=== PATIENT | female | born 1950 | race Caucasian/White ===

== ENCOUNTER 2020-11-26 11:06 | Outpatient (REF) | payer MEDICARE, BC, SELFPAY ==
[2020-11-26 13:48] LABS: Hematocrit 43.7 % (37-47); Hemoglobin 14.2 g/dl (12.0-16.0); Mean Corpuscular HGB Conc 32.5 g/dl (31.0-35.0); Mean Corpuscular Hemoglobin 30.5 pg (27.0-33.0); Mean Platelet Volume 11.8 fL (9.4-12.3); Platelet Count 256 X10*3/uL (160-400); Red Blood Count 4.65 X10*6/uL (4.20-5.50); Red Cell Distribution Width 12.4 % (11.0-16.0); White Blood Count 8.2 X10*3/uL (4.8-10.8)
[2020-11-26 14:02] LABS: Glucose Urine UA NEG (NEG); Leukocyte Esterase Urine NEG (NEG); Nitrite Urine NEG (NEG); PH 5.5 (5.0-8.0); Specific Gravity - Urine 1.025 (1.005-1.025); Urine Blood NEG (NEG); Urine Ketones NEG (NEG); Urine Protein NEG (NEG-TRACE)
[2020-11-26 14:05] LABS: Appearance Urine HAZY; Color Urine YELLOW
[2020-11-26 14:35] LABS: Mucus Urine 1+ /LPF; RBC Urine 0 /HPF (0); Squamous Epithelial Cell Urine 1+ /LPF; WBC Urine 0 /HPF (0-4)
[2020-11-26 18:09] LABS: Alanine Aminotransferase 85 U/L (0-31); Albumin Level 4.8 g/dL (3.5-5.0); Alkaline Phosphatase 96 U/L (39-117); Anion Gap 16 (12-20); Aspartate Amino Transferase 57 U/L (5-31); Bilirubin Total 0.5 mg/dL (0.0-1.0); Blood Urea Nitrogen 16 mg/dL (9-16); Calcium 9.7 mg/dL (8.4-10.2); Carbon Dioxide 27 mmol/L (22-29); Chloride 102 mmol/L (96-108); Cholesterol 181 mg/dL; Estimated Glomerular Filt Rate > 60; Glucose Fasting 102 mg/dL (60-99); HDL Cholesterol 49 mg/dL; LDL Cholesterol Calculated 101 mg/dl; Potassium 4.7 mmol/L (3.3-5.1); Sodium 140 mmol/L (135-145); Total Protein 7.5 g/dL (6.5-8.0); Triglycerides 159 mg/dL
[2020-11-26 18:20] LABS: TSH reflex Free T4 2.49 uIU/mL (0.32-4.0)
== END 2020-11-26 11:07 | disposition home or self-care (01) ==
LOC: HO.HMGCLDS 11:06
PROVIDERS: PCP Internal Medicine; Visit Provider Internal Medicine
DX: E78.5 Hyperlipidemia, unspecified (principal); I10 Essential (primary) hypertension; M17.0 Bilateral primary osteoarthritis of knee; M25.562 Pain in left knee
CPT/HCPCS: 36415; 80053; 80061; 81001; 82306; 84443; 85027

== ENCOUNTER 2020-12-26 09:00 | Outpatient (RCR) | payer MEDICARE, BC, SELFPAY ==
--- NOTE | 2020-10-30 13:19 | MHC.PT.EP ---
[facility] [place] Office [place] Office [place] Office [address] [facility]asha[facility] [address] [phone] F: [phone] F: [phone] F: [phone] F: [phone] Physical Therapy Plan of Care Date of Evaluation: 10/30/20 Date of Surgery: n/a (history of R knee surgery) Diagnosis: L knee pain Assessment: Patient is a 70 year old R handed female who presents with s/s consistent with L knee pain. 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 Patient past medical history includes chronic knee pain, OA, and cervical surgery, COPD. Current impairments include pain, ROM, strength, balance, safety, independence, activity tolerance and functional mobility. Functional limitations include decreased ability to walk, stand, transfer, negotiate stairs, and perform weight bearing activities.. Patient is motivated with good rehab potential. Skilled PT will address impairments and functional limitations in order to achieve goals. Frequency and Duration: The patient will be seen 2x/week for 5 weeks Short Term Goals: I with HEP - 2 weeks AROM 0-130 on L knee - 3 weeks able to walk 10 minutes without increased pain, symmetrical gait - 3 weeks Fdc Goals: max pain 2/10 with ADLs - 5 weeks LEFS 44/80 - 5 weeks LE strength 4/5 grossly - 5 weeks Treatment Plan: Modalities to reduce pain, spasms and effusion. Manual therapy to restore motion and function. Therapeutic exercise to improve strength and flexibility. Neuromuscular re-education for posture and balance. Therapeutic activities to return to functional activities of daily living. Electronically signed by: Steve Saul, PT Please sign and return to therapist. Thank you for your referral.
--- NOTE | 2021-01-09 10:39 | MHC.PT.DC ---
[facility] [place] Office [place] Office [place] Office [address] R[facility] 140 [facility] [phone] F: [phone] F: [phone] F: [phone] F: [phone] Physical Therapy Discharge Report Diagnosis: L knee pain Date of Surgery: n/a (history of R knee surgery) Date of Evaluation: 10/30/20 Date of Discharge: 01/09/21 Treatments to Date: 11 Cancellations to Date: 0 No Shows to Date: 0 Discharge Status: Achieved Goals Improved Function Independent with HEP Discharge Summary: Pt progressing well. ROM and strength are satisfactory as are functional gains. pt to continue with HEP and return in 2 weeks if needed. Electronically signed by: Steve Saul, PT Please sign and return to therapist. Thank you for your referral.
== END 2021-01-13 13:45 | disposition home or self-care (01) ==
LOC: HO.PTCHIC 09:00
PROVIDERS: PCP Internal Medicine; Visit Provider Internal Medicine
DX: M25.562 Pain in left knee (principal)
CPT/HCPCS: 97110; 97112; 97140; 97162

== ENCOUNTER 2021-03-26 13:11 | Outpatient (REF) | payer MEDICARE, BC, SELFPAY ==
--- NOTE | ~2021-03-26 | US_ITS ---
EXAMINATION: NONINVASIVE ASSESSMENT OF THE ARTERIES OF BOTH LOWER EXTREMITIES INCLUDING ANKLE BRACHIAL INDICES CLINICAL INFORMATION: Peripheral vascular disease, unspecified COMPARISON: None TECHNIQUE: Ankle pulse ankle pressure measurements and ankle brachial indices were obtained of the lower extremity arterial system bilaterally. The study was performed only at rest. FINDINGS: RIGHT LEG 1. Right Ankle-Brachial Index: 0.83 (higher of the DP/PT) >0.97-1.25 = normal - no significant arterial disease 0.75-0.96 = mild peripheral arterial disease 0.5-0.74 = moderate peripheral arterial disease <0.50 = severe peripheral arterial disease <0.30 = critical arterial disease 2. Segmental Pressures (mmHg): Ankle: PT 136, DP 120 Brachial: 163 LEFT LE. Left Ankle-Brachial Index: 1 (higher of the DP/PT) >0.97-1.25 = normal - no significant arterial disease 0.75-0.96 = mild peripheral arterial disease 0.5-0.74 = moderate peripheral arterial disease <0.50 = severe peripheral arterial disease <0.30 = critical arterial disease 2. Segmental Pressures: Ankle: PT 163, DP 153 Brachial: 149 US/US ABIMAEL complete IMPRESSION: Right ankle-brachial index 0.83 suggesting mild peripheral arterial disease. Left ankle-brachial index within normal limits.
== END 2021-03-26 13:12 | disposition home or self-care (01) ==
LOC: HO.US 13:11
PROVIDERS: PCP Internal Medicine; Visit Provider Internal Medicine
DX: I73.9 Peripheral vascular disease, unspecified (principal)
CPT/HCPCS: 93923

== ENCOUNTER 2021-07-09 09:42 | Outpatient (REF) | payer MEDICARE, BC, SELFPAY ==
[2021-07-09 11:57] LABS: Hematocrit 44.5 % (37.0-47.0); Hemoglobin 14.9 g/dl (12.0-16.0); Mean Corpuscular HGB Conc 33.5 g/dl (31.0-35.0); Mean Corpuscular Hemoglobin 30.4 pg (27.0-33.0); Mean Corpuscular Volume 90.8 fL (80.0-98.0); Mean Platelet Volume 11.8 fL (9.4-12.3); Platelet Count 234 X10*3/uL (160-400); Red Cell Distribution Width 12.5 % (11.0-16.0); White Blood Count 6.7 X10*3/uL (4.8-10.8)
[2021-07-09 12:37] LABS: Alanine Aminotransferase 60 U/L (0-31); Albumin Level 4.8 g/dL (3.5-5.0); Alkaline Phosphatase 112 U/L (39-117); Anion Gap 17 (12-20); Aspartate Amino Transferase 32 U/L (5-31); Bilirubin Total 0.7 mg/dL (0.0-1.0); Blood Urea Nitrogen 14 mg/dL (9-16); Calcium 10.1 mg/dL (8.4-10.2); Carbon Dioxide 25 mmol/L (22-29); Chloride 103 mmol/L (96-108); Cholesterol 151 mg/dL; Estimated Glomerular Filt Rate > 60; Glucose Fasting 104 mg/dL (60-99); HDL Cholesterol 45 mg/dL; LDL Cholesterol Calculated 87 mg/dl; Potassium 4.6 mmol/L (3.3-5.1); Sodium 140 mmol/L (135-145); Total Protein 7.6 g/dL (6.5-8.0); Triglycerides 99 mg/dL
[2021-07-09 12:42] LABS: TSH reflex Free T4 1.85 uIU/mL (0.32-4.0)
== END 2021-07-09 09:43 | disposition home or self-care (01) ==
LOC: HO.HMGCLDS 09:42
PROVIDERS: PCP Internal Medicine; Visit Provider Internal Medicine
DX: Z00.00 Encounter for general adult medical examination without abnormal findings (principal); E78.5 Hyperlipidemia, unspecified
CPT/HCPCS: 36415; 80053; 80061; 82550; 84443; 85027

== ENCOUNTER 2022-06-03 10:08 | Outpatient (REF) | payer MEDICARE, BC, SELFPAY ==
[2022-06-03 15:02] LABS: MANUAL DIFF FLAG NO
[2022-06-03 15:09] LABS: Basophils Absolute Auto 0.1 X10*3/uL (0.0-0.2); Basophils Percent Auto 0.8 % (0-2); Eosinophils Absolute Auto 0.2 X10*3/uL (0.0-0.4); Eosinophils Percent Auto 2.9 % (0-4); Hematocrit 43.9 % (37.0-47.0); Hemoglobin 14.6 g/dl (12.0-16.0); Imm Gran Abs Auto 0.02 X10*3/uL (0.00-0.03); Imm Gran Pct Auto 0.3 % (0.0-0.4); Lymphocytes Absolute Auto 2.5 X10*3/uL (1.2-4.9); Lymphocytes Percent Auto 32.3 % (20-40); Mean Corpuscular HGB Conc 33.3 g/dl (31.0-35.0); Mean Corpuscular Hemoglobin 30.2 pg (27.0-33.0); Mean Corpuscular Volume 90.9 fL (80.0-98.0); Mean Platelet Volume 11.6 fL (9.4-12.3); Monocytes Absolute Auto 0.6 X10*3/uL (0.1-1.2); Monocytes Percent Auto 8.3 % (2-11); Neutrophils Absolute Auto 4.3 x10*3/uL (2.0-8.3); Neutrophils Percent Auto 55.4 % (45-73); Platelet Count 232 X10*3/uL (160-400); Red Blood Count 4.83 X10*6/uL (4.20-5.50); Red Cell Distribution Width 12.4 % (11.0-16.0); White Blood Count 7.7 X10*3/uL (4.8-10.8)
[2022-06-03 15:21] LABS: Alanine Aminotransferase 40 U/L (0-31); Alkaline Phosphatase 113 U/L (39-117); Anion Gap 18 (12-20); Aspartate Amino Transferase 26 U/L (5-31); Bilirubin Total 0.4 mg/dL (0.0-1.0); Blood Urea Nitrogen 14 mg/dL (9-16); Calcium 10.1 mg/dL (8.4-10.2); Carbon Dioxide 24 mmol/L (22-29); Chloride 103 mmol/L (96-108); Cholesterol 178 mg/dL; Estimated Glomerular Filt Rate > 60; Glucose Fasting 110 mg/dL (60-99); HDL Cholesterol 46 mg/dL; LDL Cholesterol Calculated 92 mg/dl; Potassium 4.9 mmol/L (3.3-5.1); Sodium 140 mmol/L (135-145); Total Protein 7.9 g/dL (6.5-8.0); Triglycerides 201 mg/dL
[2022-06-03 15:44] LABS: TSH reflex Free T4 2.38 uIU/mL (0.32-4.0)
[2022-06-03 15:54] LABS: Folate 9.4 ng/mL (> or = 4.0); Vitamin B12 292 pg/mL (200-900)
== END 2022-06-03 10:09 | disposition home or self-care (01) ==
LOC: HO.HMGCLDS 10:08
PROVIDERS: PCP Internal Medicine; Visit Provider Internal Medicine
DX: M48.00 Spinal stenosis, site unspecified (principal); E78.5 Hyperlipidemia, unspecified; I10 Essential (primary) hypertension
CPT/HCPCS: 36415; 80053; 80061; 82306; 82607; 82746; 84443; 85025

== ENCOUNTER 2022-08-02 12:53 | Outpatient (REF) | payer MEDICARE, BC, SELFPAY ==
--- NOTE | ~2022-08-02 | XR_ITS ---
EXAMINATION: XR KNEE AP STANDING CLINICAL INFORMATION: Pain right knee. COMPARISON: None TECHNIQUE: AP bilateral standing view of the knees was obtained. Right knee 2 views. FINDINGS: AP Bilateral Knee: There is severe loss of medial compartment joint space right knee and moderate loss of medial and lateral compartment joint space left knee. There is periarticular spurring in the lateral compartment with chondrocalcinosis medial compartment left knee. Lateral Right Knee: There is moderate loss of patellofemoral compartment joint space with mild suprapatellar joint effusion. There is enthesophytes along the anterior tibial plateau and anterior medial femoral condyle. No loose body is seen. Lateral Left Knee: There is minimal loss of patellofemoral component joint space without joint effusion. There is inferior patellar spurring. XR/XR knee standing BI IMPRESSION: 1. Severe degenerative arthritic changes medial compartment right knee with moderate degenerative changes medial and lateral compartment left knee. 2. There is moderate loss of patellofemoral compartment joint space right knee with periarticular spurring in the medial and lateral compartments. There is mild suprapatellar joint effusion. 3. No joint effusion left knee.
[2022-08-02 15:01] LABS: Vitamin D 25-OH Total 71.7 ng/mL (>30)
== END 2022-08-02 12:54 | disposition home or self-care (01) ==
LOC: HO.HMGCLDS 12:53
PROVIDERS: PCP Internal Medicine; Visit Provider Internal Medicine
DX: M25.562 Pain in left knee (principal); M25.561 Pain in right knee; E55.9 Vitamin D deficiency, unspecified; E78.5 Hyperlipidemia, unspecified
CPT/HCPCS: 36415; 73565; 82306

== ENCOUNTER 2022-09-16 05:59 | Outpatient (REF) | payer MEDICARE, BC, SELFPAY ==
--- NOTE | ~2022-09-16 | XR_ITS ---
EXAMINATION: XT BILATERAL KNEES CLINICAL INFORMATION: Pain in bilateral knees. COMPARISON: None. TECHNIQUE: [place] views of both knees were obtained. FINDINGS: There is mild loss of medial patellofemoral compartment joint space in the left knee, and lateral patellofemoral compartment joint space in the right knee with mild periarticular spurring. No bony erosive changes seen. The soft tissues are normal. XR/XR knee LT 1V IMPRESSION: Mild degenerative changes involving patellofemoral compartments of both knees as described above. There is mild periarticular spurring as well. No bony erosive changes or loose body seen.
--- NOTE | ~2022-09-16 | XR_ITS ---
EXAMINATION: XT BILATERAL KNEES CLINICAL INFORMATION: Pain in bilateral knees. COMPARISON: None. TECHNIQUE: [place] views of both knees were obtained. FINDINGS: There is mild loss of medial patellofemoral compartment joint space in the left knee, and lateral patellofemoral compartment joint space in the right knee with mild periarticular spurring. No bony erosive changes seen. The soft tissues are normal. XR/XR knee RT 1V IMPRESSION: Mild degenerative changes involving patellofemoral compartments of both knees as described above. There is mild periarticular spurring as well. No bony erosive changes or loose body seen.
== END 2022-09-16 06:00 | disposition home or self-care (01) ==
LOC: HO.HOSX 05:59
PROVIDERS: Visit Provider Physician Assistant
DX: M17.0 Bilateral primary osteoarthritis of knee (principal)
CPT/HCPCS: 20610; 73560; 99202; J1040

== ENCOUNTER 2022-11-23 10:00 | Outpatient (RCR) | payer MEDICARE, BC, SELFPAY ==
--- NOTE | 2022-11-04 14:32 | MHC.PT.EP ---
[facility] [place] Office [place] Office [place] Office [address] [facility] [address] [phone] F: [phone] F: [phone] F: [phone] F: [phone] Physical Therapy Plan of Care Date of Evaluation: Date of Surgery: N/A Diagnosis: bilateral primary osteoarthritis of knee (RC) Assessment: pt is a 72 y/o female presenting to physical therapy w/ referring diagnosis of bilateral primary osteoarthritis of knee. She presents w/ signs and symptoms consistent w/ RA (+ pt's son) vs. fibromyalgia (present on mother's side of family). She has not had formal work-up for either diagnoses. She presents w/ hopes of receiving B TKAs in the future. pt may benefit from undergoing TKA for L first as R side is her stronger LE as of right now. Impairments include pain, decreased range of motion, decreased strength, impaired functional mobility, impaired postural awareness, and altered ambulation mechanics. pt is a fair candidate for skilled PT due to age, potential remediation of impairments, typical disease/condition progression and prognosis, comorbidities, and motivation. pt would benefit from skilled PT intervention to provide a tailored strengthening and stretching exercise program, functional training, gait training, postural re-training, neuromuscular re-education, modalities as needed for pain, equipment safety demonstration. Frequency and Duration: The patient will be seen 2x/wk for 5 wks Short Term Goals: pt will be I w/ HEP to promote self-management of condition. 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 pt will demo safe ambulation mechanics w/ SPC and walker for household ambulation to reduce fall risk. Residential Goals: pt will report a statistically significant improvement in self-reported outcome measure, LEFI, to promote return to PLOF. pt will report <2/10 B knee pain w/ ambulation 6 x 30' to facilitate improved household ambulation. pt will ascend/descend 10 stairs w/ step to pattern and railing to promote improved access to laundry. Treatment Plan: Modalities to reduce pain, spasms and effusion. Manual therapy to restore motion and function. Therapeutic exercise to improve strength and flexibility. Neuromuscular re-education for posture and balance. Therapeutic activities to return to functional activities of daily living. Electronically signed by: Barbara Loera PT, DPT Please sign and return to therapist. Thank you for your referral.
--- NOTE | 2022-12-16 08:17 | MHC.PT.DC ---
[facility] [place] Office [place] Office [place] Office [address] [facility] [address] [phone] F: [phone] F: [phone] F: [phone] F: [phone] Physical Therapy Discharge Report Diagnosis: bilateral primary osteoarthritis of knee (RC) Date of Surgery: N/A Date of Evaluation: 11/04/22 Date of Discharge: 12/16/22 Treatments to Date: 4 Cancellations to Date: 4 No Shows to Date: 1 Discharge Status: Improved Function Visit Non-compliance Discharge Summary: The patient has not been seen in this office for three weeks. She has not called to schedule any additional appointments. Per the last treatment note on 11/23/22: pt admits to feeling better w/ exercises so far. pt stated she had her L knee lock up last night when she was trying to get off the couch. She reported a painful unlocking sensation w/ some force. pt stated she was able to stand up, weight bear, and ambulate on it afterwards. pt progressed w/ stepper today to 8 min. Progressed to more quad and hamstring strengthening today. All ex's done to leslee. She is discharged from this physical therapy plan of care. Electronically signed by: Barbara Loera PT, DPT Please sign and return to therapist. Thank you for your referral.
== END 2022-12-16 08:18 | disposition home or self-care (01) ==
LOC: HO.PT 10:00
PROVIDERS: PCP Internal Medicine; Visit Provider Physician Assistant
DX: M17.0 Bilateral primary osteoarthritis of knee (principal)
CPT/HCPCS: 97110; 97162

== ENCOUNTER 2023-03-25 10:57 | Outpatient (AMB) | payer MEDICARE, BC, SELFPAY ==
[2023-03-25 11:05] VITALS: BP 120/82; PULSE 64; O2SAT 95; BMI 27.0
--- NOTE | 2023-03-25 11:05 | A.OFFPC_ITS ---
Vital Signs 03/25/23 11:05 Height 5 ft 6 in Weight 167 lb 4 oz BMI 27.0 BP 120/82 Blood Pressure Location Lt brachial Position Sitting Pulse 64 Pulse Source Pulse Oximeter Pulse Oximetry (%) 95 Oxygen Delivery Method Room Air Intake Visit Reasons: left hip pain Intake Note: pt is here for left side Hip pain Allergies Penicillins Allergy (Unknown, Verified 03/25/23 11:08) unknown Tobacco use date assessed: 03/25/23 Fall risk assessment: 1 Fall in past year Last assessed Fall Risk: 03/25/23 Dental Screening Dental Screen Date: 03/25/23 Did you have a dental visit in the last 12 months?: Yes Did you have a dental problem in the last 6 months where you did not have access to dental care?: No Was dental information given to patient?: Patient has dentist HPI left hip pain HPI Details Pt c/o L hip pain for 1 year, getting worse when walk and twisting body, not at rest. Patient denies any injury. She completed physical therapy for bilateral knee pain and feels better [facility] Medical History Annual physical exam Claudication COPD (chronic obstructive pulmonary disease) Elevated LFTs Ex-smoker for more than 1 year HTN (hypertension) Hyperlipidemia Knee pain, left Mammogram normal Osteoarthritis of knees, bilateral Surgical History H/O knee surgery Family History Mother Diabetes Fibromyalgia Father Abnormal cardiovascular function Brother Substance use disorder Social History Housing: House Alcohol intake: current Alcohol intake frequency: a few times a week Patient Tobacco Use Status: Former Tobacco user Quit Date: 1,5 year ago e-Cigarette/Vaping Use: Former Use Current occupational status: retired Cognitive needs: No Hearing needs: No Vision needs: Yes Questionnaire Thrive Questionnaire Date Thrive assessed: 11/25/22 AUDIT C Alcohol Use Questionnaire (AUDIT-C) 1. How often do you have a drink containing alcohol?: 2-4 times a month 2. How many drinks containing alcohol do you have on a typical day when you are drinking?: 1 or 2 3. How often do you have six or more drinks on one occasion?: Less than monthly Total Score: 3 KENA-7 AMB Questionnaire KENA-7 Date KENA - 7 assessed: 11/25/22 Feeling nervous, anxious, or on edge: 2 = More than half the days Not being able to stop or control worryin = More than half the days Worrying too much about different things: 2 = More than half the days Trouble relaxin = More than half the days Being so restless that it is hard to sit still: 0 = Not at all Becoming easily annoyed or irritable: 1 = Several days Feeling afraid as if something awful might happen: 1 = Several days Total KENA-7 score (0-4 normal; 5-9 mild; 10-14 moderate; 15-21 severe): 10 Source: Developed by Drs. Simon Abel, Thelma Gould, Rajat Todd and colleagues, with an educational juliano from [employer]. Review of Systems Const All systems reviewed & are unremarkable except as noted in HPI and below Reports no additional complaints Eyes Reports no additional complaints ENT Reports no additional complaints Card Reports no additional complaints Resp Reports no additional complaints GI Reports no additional complaints Reports no additional complaints Physical exam (Primary Care) Vital Signs: Last Vital Signs Pulse 64 03/25/23 11:05 BP 120/82 03/25/23 11:05 Pulse Ox 95 03/25/23 11:05 Oxygen Delivery Method Room Air 03/25/23 11:05 BMI result Body Mass Index 27.0 Tobacco/Smoking Status: Tobacco use Status Tobacco use date assessed 03/25/23 03/25/23 11:12 Patient Tobacco Use Status Former Tobacco user 03/25/23 11:05 e-Cigarette/Vaping Use Former Use 03/25/23 11:05 Thrive Assessment: Date of Thrive Assessment Date Thrive assessed 11/25/22 03/25/23 11:05 Const General: no acute distress HENMT Face and sinus: Yes normal facial exam Resp Effort & Inspection: normal respiratory effort Auscultation: clear to auscultation bilaterally Cardio Rhythm: regular rhythm Heart sounds: S1 normal heart sound present and S2 normal heart sound present Extrem Other: Significantly decreased range of motion both hips left more than right General: Yes no clubbing, cyanosis or edema Assessment and Plan Assessment & Plan (1) Hip pain, bilateral: Code(s): M25.551 - Pain in right hip; M25.552 - Pain in left hip Plan: Obtain x-ray (2) Left hip pain: Code(s): M25.552 - Pain in left hip Plan: Check x-ray referred to physical therapy and orthopedic surgeon Orders: Orders XR hips IVON min 3V Today M25.551 - Pain in right hip, M25.552 - Pain in left hip PT Evaluation and Treatment Today M25.552 - Pain in left hip Referrals Orthopedics Referral M25.552 - Pain in left hip Coding Level of Care Code Est Pt Level 3 (30150) Diagnoses Hip pain, bilateral M25.551; M25.552 Left hip pain M25.552
== END 2023-03-25 11:51 | disposition home or self-care (01) ==
PROVIDERS: PCP Internal Medicine; Visit Provider Internal Medicine
DX: M25.551 Pain in right hip (principal); M25.552 Pain in left hip
CPT/HCPCS: 99213

== ENCOUNTER 2023-03-25 11:55 | Outpatient (REF) | payer MEDICARE, BC, SELFPAY ==
--- NOTE | ~2023-03-25 | XR_ITS ---
EXAMINATION: XR BILATERAL HIPS WITH AP PELVIS CLINICAL INFORMATION: Pain COMPARISON: 09/16/2022 TECHNIQUE: Total of 4 views AP view of the pelvis and single views of each hip were obtained. FINDINGS: ORIF changes lower lumbosacral spine partially imaged. Advanced degeneration of both hip joints left greater than right with loss of joint space in axial manner. Relative paucity of hypertrophic changes but there are subchondral cysts. Appearance favors sequelae of an inflammatory arthritis including rheumatoid arthritis. Minor trochanteric calcifications likely on the right. No focal bony lesion. XR/XR hips IVON min 3V IMPRESSION: Advanced degeneration of both hip joints left greater than right. Appearance favors sequelae of an inflammatory arthritis including rheumatoid arthritis.
== END 2023-03-25 11:56 | disposition home or self-care (01) ==
LOC: HO.HMGCX 11:55
PROVIDERS: PCP Internal Medicine; Visit Provider Internal Medicine
DX: M25.551 Pain in right hip (principal); M25.552 Pain in left hip
CPT/HCPCS: 73522

== ENCOUNTER 2023-03-30 14:32 | Outpatient (AMB) | payer MEDICARE, BC, SELFPAY ==
[2023-03-30 14:44] VITALS: BMI 26.2
--- NOTE | 2023-03-30 14:44 | MHC.OFFVIS ---
Intake Vital Signs 03/30/23 14:44 Height 5 ft 7 in Weight 167 lb BMI 26.2 Intake Visit Reasons: New Prob-Left Hip Pain Intake Note: Jane is a 72 year old female who presents today for a evaluation for her left hip pain. Patient reports ongoing pain for many years. She states her pain is more near the glutes and moves down to her thigh. Pain is worse when sleeping on the left side, and standing for too long. Patient reports having PT appointment at the end of March. The patient describes her left hip pain as sharp and severe in nature, 05/31. The patient also has intermittent pain in her right hip. She states that her right hip pain is tolerable to her at this point. The patient has difficulty walking even short distances because of her left hip pain. She has tried Tylenol and anti-inflammatory medicines which gave her minimal relief. At this point the patient's left hip pain is interfering with her activities of daily living and her ability to sleep well through the night. Allergies Penicillins Allergy (Unknown, Verified 03/30/23 14:50) unknown Medication List - Last Reconciled 03/31/23 by Gregory Martinez MD atorvastatin 40 mg PO DAILY cholecalciferol (vitamin D3) 25 mcg PO DAILY metoprolol succinate ER 100 mg PO DAILY omega-3 fatty acids (Fish Oil Concentrate) 1,000 mg PO DAILY [facility] Medical History Annual physical exam Claudication COPD (chronic obstructive pulmonary disease) Elevated LFTs Ex-smoker for more than 1 year HTN (hypertension) Hyperlipidemia Knee pain, left Mammogram normal Osteoarthritis of knees, bilateral Surgical History H/O knee surgery Family History Mother Diabetes Fibromyalgia Father Abnormal cardiovascular function Brother Substance use disorder Social History Housing: House Alcohol intake: current Alcohol intake frequency: a few times a week Patient Tobacco Use Status: Former Tobacco user Quit Date: 1,5 year ago e-Cigarette/Vaping Use: Former Use Current occupational status: retired Cognitive needs: No Hearing needs: No Vision needs: Yes Physical Exam Vital Signs: BMI result Body Mass Index 26.2 Const Other: Well-nourished well-developed very friendly female awake alert and oriented x3 in no acute distress Extrem Other: Bilateral lower extremity examination shows good capillary refill, no skin lesions noted, normal sensation light touch Left hip examination shows decreased range of motion when compared to her right hip, pain with range of motion, no tenderness over her bursa Results Reviewed Results Reviewed: X-rays of the patient's left hip show severe joint space narrowing with grade 4 [id number] arthritis, subchondral sclerosis, osteophyte formation, no acute bony abnormalities Assessment & Plan Assessment & Plan (1) Arthritis of left hip: Code(s): M16.12 - Unilateral primary osteoarthritis, left hip Plan Ms. Shrestha presents with progressively worsening bilateral hip pains, left greater than right, due to severe degenerative joint disease. I had a lengthy discussion with her regarding the treatment options. At this point the patient has failed continued non operative treatments. The risks and benefits of left total hip replacement surgery were discussed at length with the patient. We had a discussion regarding implant in bearing options. We had a detailed discussion of the advantages and limitations of the specific implant designs, materials and bearing surfaces. All questions were answered to the patient's satisfaction. The patient wishes to proceed with surgery as soon as her current dental work is completed. She will contact my office to pick a surgery date once she is cleared by her dentist. I will see her back 1 week prior to her surgery to answer any final questions that she might have. Feel free to call me at any time should questions regarding her orthopedic management arise. Thank you very much for asking me to see this very friendly patient. I spent 22 minutes in reviewing the patient's records and imaging studies, seeing the patient and documenting in the medical record. Coding Level of Care Code New Pt Level 2 (99919) Diagnoses Arthritis of left hip M16.12
== END 2023-03-30 15:33 | disposition home or self-care (01) ==
PROVIDERS: PCP Internal Medicine; Visit Provider Orthopaedic Surgery
DX: M16.12 Unilateral primary osteoarthritis, left hip (principal)
CPT/HCPCS: 99202

== ENCOUNTER → 2023-03-30 14:32 | Outpatient (BNVA) | payer MEDICARE, BC, SELFPAY | PROVIDERS: PCP Internal Medicine; Visit Provider Orthopaedic Surgery | DX: M16.12 Unilateral primary osteoarthritis, left hip (principal) | CPT/HCPCS: 99202 ==

== ENCOUNTER 2023-04-27 14:00 | Outpatient (RCR) | payer MEDICARE, BC, SELFPAY ==
--- NOTE | 2023-04-19 12:42 | MHC.PT.EP ---
[facility] [place] Office [place] Office [place] Office [address] Rasha[facility] [address] [phone] F: [phone] F: [phone] F: [phone] F: [phone] Physical Therapy Plan of Care Date of Evaluation: Date of Surgery: Diagnosis: LEFT HIP PAIN/PRE-HAB () Assessment: ROSALBA IS A PLEASANT 72 YO FEMALE WHO PRESENTS WITH INCREASING HIP PAIN OVER THE LAST SEVERAL YEARS. SHE STATES IT IS NOW WORSENING AND SHE IS GETTING READY TO UNDERGO TOTAL HIP ARTHROPLASTY BY DR. ZAMUDIO. SHE DOES REPORT NEUROPATY IN IVON FEET, I FEEL LIKE I HAVE SOCKS ON ALL THE TIME . HIP PAIN IS LIMITING HER WALKING AND STAIR NEGOTIATION, SHE REPORTS DECREASED ABILITY TO PERFORM HOMEMAKING TASKS AND RECREATIONAL ACTIVITIES. IMPAIRMENTS INCLUDE DECREASED LEFT HIP ROM AND STRENGTH, ALTERED POSTURE AND POSITIONING, INCREASED PAIN. FUNCTIONAL LIMITATIONS INCLUDE DECREASED ABILITY TO PERFORM ADLs AND HOMEMAKING TASKS, SHE HAS DECREASED TOLERANCE TO STATIC STANDING, WALKING AND STAIR NEGOTIATION, SHE REPORTS DECREASED PARTICIPATION IN COMMUNITY AND RECREATIONAL ACTIVITIES. Frequency and Duration: The patient will be seen 1 X WEEK FOR 4 WEEKS Short Term Goals: INITIATE HEP AND PROMOTE SELF MANAGEMENT OF SYMPTOMS Senior Care Goals: INDEPENDENT HOME PROGRAM FULL LE STRENGTH, EQUAL IVON TO AMBULATE AT MINIMUM 500' WITHOUT PAIN GREATER THAN 2/10 Treatment Plan: Modalities to reduce pain, spasms and effusion. Manual therapy to restore motion and function. Therapeutic exercise to improve strength and flexibility. Neuromuscular re-education for posture and balance. Therapeutic activities to return to functional activities of daily living. Electronically signed by: DINH FLORES PT DPT Please sign and return to therapist. Thank you for your referral.
--- NOTE | 2023-06-07 07:48 | MHC.PT.DC ---
[facility] [place] Office [place] Office [place] Office [address] Rasha[facility] House [address] [phone] F: [phone] F: [phone] F: [phone] F: [phone] Physical Therapy Discharge Report Diagnosis: LEFT HIP PAIN/PRE-HAB ([place]) Date of Surgery: Date of Evaluation: 04/18/23 Date of Discharge: 06/07/23 Treatments to Date: 2 Cancellations to Date: 1 No Shows to Date: 1 Discharge Status: Discharge Summary: Pt ATTENDED INITIAL EVAL AND 1 VISIT. CANCELLED/NO SHOWED FOR REMAINING 2 AND CHOSE NOT TO SCHEDULE FURTHER PT. SHE HAS NOT BEEN SEEN IN OUR OFFICE FOR OVER 30 DAYS AND WE WILL THEREFORE DC THE CURRENT CHART. Electronically signed by: DINH FLORES PT DPT Please sign and return to therapist. Thank you for your referral.
== END 2023-06-07 07:48 | disposition home or self-care (01) ==
LOC: HO.PT 14:00
PROVIDERS: PCP Internal Medicine; Visit Provider Internal Medicine
DX: M25.552 Pain in left hip (principal)
CPT/HCPCS: 97110; 97161

== ENCOUNTER 2023-08-04 11:24 | Outpatient (AMB) | payer MEDICARE, BC, SELFPAY ==
--- NOTE | 2023-08-04 11:40 | A.OFFVIS_ITS ---
Intake Vital Signs 08/04/23 11:41 Height 5 ft 5.5 in Weight 171 lb BMI 28.0 BP 122/74 Blood Pressure Location Lt brachial Position Sitting Pulse 82 Pulse Source Pulse Oximeter Pulse Oximetry (%) 97 Oxygen Delivery Method Room Air Intake Visit Reasons: SWV [id number] Allergies Penicillins Allergy (Unknown, Verified 08/04/23 11:44) Rash Medication List - Last Reconciled 08/04/23 by Qing Aguilar MD atorvastatin 40 mg PO DAILY cholecalciferol (vitamin D3) 25 mcg PO DAILY metoprolol succinate ER 100 mg PO DAILY omega-3 fatty acids (Fish Oil Concentrate) 1,000 mg PO DAILY HPI SWV [id number] HPI Details Initiated the conversation about Advanced Directives. Advanced Directives help? patients prepare for current and future decisions about their medical treatment? and place of care. Discussed with patient that it is a process where a patients? current condition and prognosis are reviewed, their wishes for information? regarding their illness are elicited, and likely medical dilemmas are presented? and options discussed. The form can be amended as needed, reviewed yearly and? make changes as needed IPPE/AWV ? year old presents? for her ? Annual? Wellness Visit, initial visit.? Medical / Social History Reviewed? Past Medical History ?Yes? . ? [place]? of Care / Care Team list updated ?Yes . ? Surgical/Hospitalization? History ?Yes . ? Current Medications? (including OTC and supplements) ?Yes . ? Family History ?Yes? . ? Tobacco? Control form ?Yes . ? AUDIT-C (Alcohol use) form? ?Yes . ? Illicit drug use in Social? History ?Yes . ? Current diagnosis of? depression? ?No ? Appropriate PHQ2/PHQ9? completed ?Yes . ? Data entered by ?Medical? [employer] and reviewed by provider ? Fall Risk ? Fall? History? Have you had any falls with? injury in the past year? ?No . ? Have you had two or more? falls in the past year? ?No . ? Fall Risk Assessment: ?No? falls in the past year . ? HRA filled out by? the patient, reviewed by Provider and scanned. ? IPPE/AWV ? Balance? [place]? ?Yes . ? Tandem? walk ?Yes . ? Walk and? Turn ?Yes . ? Rise from? sit to stand ?Yes . ?Vision? Corrective? lens ?Yes ? Vision? screen ? Up-to-date, has an appointment [] for vision? screening and glaucoma screening ?Hearing? Whisper? test ?pass .? Initiated the conversation about Advanced Directives. Advanced Directives help? patients prepare for current and future decisions about their medical treatment? and place of care. Discussed with patient that it is a process where a patients? current condition and prognosis are reviewed, their wishes for information? regarding their illness are elicited, and likely medical dilemmas are presented? and options discussed. The form can be amended as needed, reviewed yearly and? make changes as needed Written? Plan?Completed. See Patient? Documents. [facility] Medical History Annual physical exam Claudication COPD (chronic obstructive pulmonary disease) Elevated LFTs Ex-smoker for more than 1 year HTN (hypertension) Hyperlipidemia Knee pain, left Mammogram normal Osteoarthritis of knees, bilateral Surgical History H/O knee surgery Family History Mother Diabetes Fibromyalgia Father Abnormal cardiovascular function Brother Substance use disorder Social History Housing: House Alcohol intake: current Alcohol intake frequency: a few times a week Patient Tobacco Use Status: Former Tobacco user Quit Date: 1,5 year ago e-Cigarette/Vaping Use: Former Use Current occupational status: retired Cognitive needs: No Hearing needs: No Vision needs: Yes Questionnaire Medicare Wellness Checkup [age] What gender do you identify with?: female During the past 4 weeks, how much have you been bothered by emotional problems such as feeling anxious, depressed, irritable, sad or downhearted, and blue?: slightly During the past 4 weeks, has your physical & emotional health limited your social activities with family, friends, neighbors, or groups?: not at all During the past 4 weeks, how much bodily pain have you generally had?: moderate pain During the past 4 weeks, was someone available to help you if you needed & wanted help?: yes, as much as I wanted During the past 4 weeks, what was the hardest physical activity you could do for at least 2 minutes?: very light Can you get to places out of walking distance without help? (For eg., can you travel alone on buses, taxis or drive your car?): Yes Can you go shopping for groceries or clothes without someone's help?: Yes Can you prepare your own meals?: Yes Can you do your housework without help?: No Because of any health problems, do you need the help of another person with your personal care needs such as eating, bathing, dressing or getting around the house?: Yes Can you handle your own money without help?: Yes During the past 4 weeks, how would you rate your health in general?: good During the past 4 weeks how have things been going for you?: good & bad parts about equal Are you having difficulties driving your car?: no Do you always fasten your seat belt when you are in a car?: yes, usually During past 4 weeks, have you been bothered by the following: never: Falling or dizzy when standing up, Sexual problems?, Trouble eating well?, Teeth or denture problems? and Problems using the telephone? and sometimes: Tiredness or fatigue? Have you fallen 2 or more times in the past year?: No Are you afraid of falling?: Yes Are you a smoker?: no During the past 4 weeks, how many drinks of wine, beer, or other alcoholic beverages did you have?: 1 drink or less per week Do you exercise for about 20 minutes 3 or more times a week?: no, I usually do not exercise this much Have you been given information to help with the following?: no: Hazards in your house that might hurt you? and no: Keeping track of your medications? How often do you have trouble taking medicines the way you have been told to take them?: I always take medicine as prescribed How confident are you that you can control & manage most of your health problems?: somewhat confident What is your race?: White Mini Mental State Exam (MMSE) Orientation What is the (year) (season) (date) (day) (month)?: year, season, date, day and month Where are we (state) (county) (town or city) (hospital) (floor)?: state, county, town or city, hospital/clinic and floor Registration Name of 3 unrelated objects clearly and slowly, then ask patient to repeat all 3 of them. (1st repeat determines score. Make sure they can repeat all three): object 1, object 2 and object 3 Attention & Calculation (CHOOSE ONE) Spell WORLD backwards (DLROW): 5 letters Recall Ask patient to repeat the 3 items from question #3.: object 1, object 2 and object 3 Language Show patient a wristwatch & ask what it is. Repeat for pencil.: watch and pencil Ask the patient to repeat the phrase 'No ifs, ands, or buts' after you.: correct Ask the patient to 'take a piece of paper with their right hand' 'fold paper in half' 'place paper on floor': take paper in right hand, fold paper in half and place paper on floor Print the sentence 'CLOSE YOUR EYES' on a piece. If patient actually closes eyes then score.: followed written direction Give patient a blank piece of paper & ask to write a sentence. Score if it contains a noun & verb.: sentence contains subject and verb Score Score: 29 Activity of Daily Living Bathing - sponge bath, tub bath or shower: receives no assistance (gets in/out by self, if usual bathing means Dressing - getting clothes from closets & drawers, including inner/outer garments & fasteners.: gets clothes & gets completely dressed without help Toileting - going to the 'toilet room' for urine/bowel elimination & cleaning self/arranging clothes: goes to toilet room, cleans self, arranges clothes without help Transfer: moves in & out of bed and chair without help (may use support object) Continence: controls urination/bowel movements completely by self Feeding: feeds self without help Total Score: 0 Information obtained from: patient Using telephone: independent Traveling: independent Shopping: independent Preparing meals: independent Housework: needs assistance Taking medicine: independent Managing money: independent PHQ-9 Over the last 2 weeks, how often have you been bothered by any of the following problems? 1. Little interest or pleasure in doing things: not at all 2. Feeling down, depressed, or hopeless: not at all 3. Trouble falling or staying asleep, or sleeping too much: several days 4. Feeling tired or having little energy: several days 5. Poor appetite or overeating: several days 6. Feeling bad about yourself - or that you are a failure or have let yourself or your family down: not at all 7. Trouble concentrating on things, such as reading the newspaper or watching television: not at all 8. Moving or speaking so slowly that other people could have noticed. Or the opposite - being so fidgety or restless that you have been moving around a lot more than usual: not at all 9. Thoughts that you would be better off or of hurting yourself in some way: not at all Total score: 3 Depression Screening Interpretation: Negative Depression Screening Done: Yes 44393 - PHQ-9 Billing: Yes Source: Developed by Drs. Simon Abel, Thelma Gould, Raajt Todd and colleagues, with an educational juliano from [employer]. Review of Systems Const All systems reviewed & are unremarkable except as noted in HPI and below Reports no additional complaints Eyes Reports no additional complaints ENT Reports no additional complaints Card Reports no additional complaints Resp Reports no additional complaints GI Reports no additional complaints Reports no additional complaints Physical Exam Vital Signs: Last Vital Signs Pulse 82 08/04/23 11:41 BP 122/74 08/04/23 11:41 Pulse Ox 97 08/04/23 11:41 Oxygen Delivery Method Room Air 08/04/23 11:41 BMI result Body Mass Index 28.0 Const General: no acute distress HEENT Head: Yes normal to inspection Neck Neck: Yes no lymphadenopathy and Yes supple Resp Effort & Inspection: normal respiratory effort Auscultation: clear to auscultation bilaterally Cardio Rhythm: regular rhythm Heart sounds: S1 normal heart sound present and S2 normal heart sound present GI Inspection: Yes normal to inspection Palpation (GI): Soft to palpation Percussion: Yes normal to percussion Auscultation: normal bowel sounds Extrem General: Yes no clubbing, cyanosis or edema Assessment & Plan Assessment & Plan (1) Sinus tachycardia: Comment: on BB Code(s): R00.0 - Tachycardia, unspecified Plan: Continue metoprolol (2) Hip pain, bilateral: Code(s): M25.551 - Pain in right hip; M25.552 - Pain in left hip Plan: Patient will have a left hip arthroplasty in August (3) Annual physical exam: Code(s): Z00.00 - Encounter for general adult medical examination without abnormal fi ndings Plan: Well-balanced diet regular physical activity discussed with the patient she will have a mammogram at [facility]. she is up-to-date with a colonoscopy in November this year (4) HTN (hypertension): Code(s): I10 - Essential (primary) hypertension Plan: Continue metoprolol (5) Hx of colonoscopy: Comment: 12/12 Dr. Becker negative Code(s): Z98.890 - Other specified postprocedural states Plan: f/u Quality Reporting (2019) Depression/Bipolar (159/160/161/177) PHQ-9: Total score: 3 Coding Level of Care Code Medicare Subsequent (G0439) Diagnoses Sinus tachycardia R00.0 Hip pain, bilateral M25.551; M25.552 Annual physical exam Z00.00 HTN (hypertension) I10 Hx of colonoscopy Z98.890 CPT Codes Advance Care Planning - Time spent: 1-15 minutes, not on file ([id number]) Advance Care Planning Advance Care Planning discussion: Exists, not on file Forms completed: Health Care Proxy Time spent: 1-15 minutes, not on file
[2023-08-04 11:41] VITALS: BP 122/74; PULSE 82; O2SAT 97; BMI 28.0
== END 2023-08-04 13:58 | disposition home or self-care (01) ==
PROVIDERS: Visit Provider Internal Medicine
DX: Z00.00 Encounter for general adult medical examination without abnormal findings (principal); R00.0 Tachycardia, unspecified; M25.551 Pain in right hip; M25.552 Pain in left hip; I10 Essential (primary) hypertension; Z98.890 Other specified postprocedural states
CPT/HCPCS: 1124F; G0439

== ENCOUNTER → 2023-08-11 09:56 | Outpatient (BNVA) | payer MEDICARE, BC, SELFPAY | PROVIDERS: PCP Internal Medicine; Visit Provider Orthopaedic Surgery ==

== ENCOUNTER 2023-08-23 09:28 | Outpatient (AMB) | payer MEDICARE, BC, SELFPAY ==
--- NOTE | 2023-08-23 09:35 | A.OFFPC_ITS ---
Vital Signs 08/23/23 09:36 Height 5 ft 5.5 in Weight 171 lb BMI 28.0 BP 120/78 Blood Pressure Location Lt brachial Position Sitting Pulse 83 Pulse Source Pulse Oximeter Pulse Oximetry (%) 96 Oxygen Delivery Method Room Air Intake Visit Reasons: Pre op L total Hip Arthroplasty 09/12/23 Dr. Martinez Allergies Penicillins Allergy (Unknown, Verified 08/23/23 09:40) Rash Medication List - Last Reconciled 08/23/23 by Qing Aguilar MD atorvastatin 40 mg PO DAILY cholecalciferol (vitamin D3) 25 mcg PO DAILY metoprolol succinate ER 100 mg PO DAILY omega-3 fatty acids (Fish Oil Concentrate) 1,000 mg PO DAILY Tobacco use date assessed: 08/23/23 Fall risk assessment: No Falls in past year Last assessed Fall Risk: 08/23/23 Dental Screening Dental Screen Date: 08/23/23 Did you have a dental visit in the last 12 months?: Yes Did you have a dental problem in the last 6 months where you did not have access to dental care?: No Was dental information given to patient?: Patient has dentist HPI Pre op L total Hip Arthroplasty 09/12/23 Dr. Martinez HPI Details Pt presents for preop for L hip arthroplasty. HTN and hyperlipid, are stable on meds. [facility] Medical History Annual physical exam Claudication Elevated LFTs Knee pain, left Mammogram normal COPD (chronic obstructive pulmonary disease) HTN (hypertension) Osteoarthritis of knees, bilateral Ex-smoker for more than 1 year Hyperlipidemia Surgical History H/O knee surgery Family History Mother Diabetes Fibromyalgia Father Abnormal cardiovascular function Brother Substance use disorder Social History Housing: House Alcohol intake: current Alcohol intake frequency: a few times a week Patient Tobacco Use Status: Former Tobacco user Quit Date: 1,5 year ago e-Cigarette/Vaping Use: Former Use Current occupational status: retired Cognitive needs: No Hearing needs: No Vision needs: Yes Questionnaire PHQ-9 Over the last 2 weeks, how often have you been bothered by any of the following problems? 1. Little interest or pleasure in doing things: not at all 2. Feeling down, depressed, or hopeless: several days 3. Trouble falling or staying asleep, or sleeping too much: more than half the days 4. Feeling tired or having little energy: more than half the days 5. Poor appetite or overeating: several days 6. Feeling bad about yourself - or that you are a failure or have let yourself o r your family down: not at all 7. Trouble concentrating on things, such as reading the newspaper or watching television: not at all 8. Moving or speaking so slowly that other people could have noticed. Or the opposite - being so fidgety or restless that you have been moving around a lot more than usual: not at all 9. Thoughts that you would be better off or of hurting yourself in some way: not at all Total score: 6 Depression Screening Interpretation: Negative Depression Screening Done: Yes Source: Developed by Drs. Simon Abel, hTelma Gould, Rajat Todd and colleagues, with an educational juliano from [employer]. Thrive Questionnaire Date Thrive assessed: 08/23/23 I am a: Patient What is your living situation today?: I have a steady place to live Within the past 12 months, did the food you bought not last and you didn't have the money to get more?: Never true Within the past 12 months, did you worry whether your food would run out before you got money to buy more?: Never true Do you have trouble paying for medicines?: No Do you have trouble getting transportation to medical appointments?: No Do you have trouble paying your heating and electricity bill?: No Do you have trouble taking care of your child, family member or friend?: No Do you have trouble with day-to-day activities such as bathing, preparing meals, shopping, managing finances, etc.?: No Are you currently unemployed and looking for a job?: No Are you interested in more education?: No Please select the resources that you would like help with: None Currently or been in a relationship where the following occur: no concerns reported AUDIT C Alcohol Use Questionnaire (AUDIT-C) 1. How often do you have a drink containing alcohol?: 2-4 times a month 2. How many drinks containing alcohol do you have on a typical day when you are drinking?: 1 or 2 3. How often do you have six or more drinks on one occasion?: Never Total Score: 2 KENA-7 AMB Questionnaire KENA-7 Date KENA - 7 assessed: 08/23/23 Feeling nervous, anxious, or on edge: 1 = Several days Not being able to stop or control worryin = Not at all Worrying too much about different things: 0 = Not at all Trouble relaxin = Several days Being so restless that it is hard to sit still: 0 = Not at all Becoming easily annoyed or irritable: 0 = Not at all Feeling afraid as if something awful might happen: 0 = Not at all Total KENA-7 score (0-4 normal; 5-9 mild; 10-14 moderate; 15-21 severe): 2 Source: Developed by Drs. Simon Abel, Thelma Gould, Rajat Todd and colleagues, with an educational juliano from [employer]. Review of Systems Const All systems reviewed & are unremarkable except as noted in HPI and below Reports no additional complaints Eyes Reports no additional complaints ENT Reports no additional complaints Card Reports no additional complaints Resp Reports no additional complaints GI Reports no additional complaints Reports no additional complaints Physical exam (Primary Care) Vital Signs: Last Vital Signs Pulse 83 08/23/23 09:36 BP 140/78 H 08/23/23 09:36 Pulse Ox 96 08/23/23 09:36 Oxygen Delivery Method Room Air 08/23/23 09:36 BMI result Body Mass Index 28.0 Tobacco/Smoking Status: Tobacco use Status Tobacco use date assessed 08/23/23 08/23/23 09:43 Patient Tobacco Use Status Former Tobacco user 08/23/23 09:43 e-Cigarette/Vaping Use Former Use 08/23/23 09:43 Depression Screening Interpretation: Negative Thrive Assessment: Date of Thrive Assessment Date Thrive assessed 11/25/22 08/23/23 09:43 Currently or been in a relationship where the following occur: no concerns reported Const General: no acute distress HENMT Head: Yes normal to inspection Ears: hearing grossly normal bilaterally Eyes General: appearance normal, both eyes and all related structures Neck Neck: Yes no lymphadenopathy and Yes supple Resp Effort & Inspection: normal respiratory effort Auscultation: clear to auscultation bilaterally Cardio Rhythm: regular rhythm Heart sounds: S1 normal heart sound present and S2 normal heart sound present GI Inspection: Yes normal to inspection Palpation (GI): Soft to palpation Assessment and Plan Assessment & Plan (1) HTN (hypertension): Code(s): I10 - Essential (primary) hypertension Plan: Continue metoprolol , EKG showed normal sinus rhythm no ST-T changes. (2) Hyperlipidemia: Code(s): E78.5 - Hyperlipidemia, unspecified Plan: Continue statin, check blood work today (3) Arthritis of left hip: Code(s): M16.12 - Unilateral primary osteoarthritis, left hip Plan: Patient is medically cleared for left knee arthroplasty. Orders: Orders Comprehensive [place]. Panel Fast Today E78.5 - Hyperlipidemia, unspecified, I10 - Essential (primary) hypertension, J44.9 - Chronic obstructive pulmonary disease, unspecified Complete Blood Count Auto Diff Today E78.5 - Hyperlipidemia, unspecified, I10 - Essential (primary) hypertension, J44.9 - Chronic obstructive pulmonary disease, unspecified Lipid Panel Today E78.5 - Hyperlipidemia, unspecified, I10 - Essential (primary) hypertension, J44.9 - Chronic obstructive pulmonary disease, unspecified TSH reflex Free T4 Today E78.5 - Hyperlipidemia, unspecified, I10 - Essential (primary) hypertension, J44.9 - Chronic obstructive pulmonary disease, unspecified Hemoglobin A1c Today E78.5 - Hyperlipidemia, unspecified, I10 - Essential (primary) hypertension, J44.9 - Chronic obstructive pulmonary disease, unspecified Coding Level of Care Code Est Pt Level 4 (95548) Diagnoses HTN (hypertension) I10 Hyperlipidemia E78.5 Arthritis of left hip M16.12
[2023-08-23 09:36] VITALS: BP 120/78; PULSE 83; O2SAT 96; BMI 28.0
== END 2023-08-23 10:15 | disposition home or self-care (01) ==
PROVIDERS: PCP Internal Medicine; Visit Provider Internal Medicine
DX: I10 Essential (primary) hypertension (principal); E78.5 Hyperlipidemia, unspecified; M16.12 Unilateral primary osteoarthritis, left hip
CPT/HCPCS: 99214

== ENCOUNTER 2023-08-23 10:02 | Outpatient (REF) | payer MEDICARE, BC, SELFPAY ==
[2023-08-23 13:16] LABS: MANUAL DIFF FLAG NO
[2023-08-23 13:19] LABS: Basophils Absolute Auto 0.1 X10*3/uL (0.0-0.2); Basophils Percent Auto 0.7 % (0-2); Eosinophils Absolute Auto 0.2 X10*3/uL (0.0-0.4); Eosinophils Percent Auto 2.3 % (0-4); Hematocrit 42.7 % (37.0-47.0); Hemoglobin 14.5 g/dl (12.0-16.0); Imm Gran Abs Auto 0.01 X10*3/uL (0.00-0.03); Imm Gran Pct Auto 0.1 % (0.0-0.4); Lymphocytes Absolute Auto 2.2 X10*3/uL (1.2-4.9); Lymphocytes Percent Auto 29.1 % (20-40); Mean Corpuscular Volume 91.2 fL (80.0-98.0); Mean Platelet Volume 11.7 fL (9.4-12.3); Monocytes Absolute Auto 0.8 X10*3/uL (0.1-1.2); Monocytes Percent Auto 10.4 % (2-11); Neutrophils Absolute Auto 4.3 x10*3/uL (2.0-8.3); Neutrophils Percent Auto 57.4 % (45-73); Platelet Count 226 X10*3/uL (160-400); Red Blood Count 4.68 X10*6/uL (4.20-5.50); Red Cell Distribution Width 12.1 % (11.0-16.0); White Blood Count 7.4 X10*3/uL (4.8-10.8)
[2023-08-23 13:32] LABS: Estimated Average Glucose 120 mg/dL; Hemoglobin A1c % 5.8 % (<6.0)
[2023-08-23 13:40] LABS: Alanine Aminotransferase 28 U/L (0-31); Albumin Level 4.7 g/dL (3.5-5.0); Alkaline Phosphatase 89 U/L (39-117); Anion Gap 15 (12-20); Aspartate Amino Transferase 21 U/L (5-31); Bilirubin Total 0.5 mg/dL (0.0-1.0); Blood Urea Nitrogen 17 mg/dL (9-16); Carbon Dioxide 26 mmol/L (22-29); Chloride 103 mmol/L (96-108); Cholesterol 173 mg/dL (<200); Estimated Glomerular Filt Rate > 60; Glucose Fasting 107 mg/dL (60-99); HDL Cholesterol 49 mg/dL (>40); LDL Cholesterol Calculated 94 mg/dL (<100); Potassium 4.4 mmol/L (3.3-5.1); Sodium 140 mmol/L (135-145); Total Protein 7.8 g/dL (6.5-8.0); Triglycerides 153 mg/dL (<150)
[2023-08-23 13:56] LABS: TSH reflex Free T4 2.12 uIU/mL (0.32-4.0)
== END 2023-08-23 10:03 | disposition home or self-care (01) ==
LOC: HO.HMGCLDS 10:02
PROVIDERS: PCP Internal Medicine; Visit Provider Internal Medicine
DX: I10 Essential (primary) hypertension (principal); J44.9 Chronic obstructive pulmonary disease, unspecified; E78.5 Hyperlipidemia, unspecified
CPT/HCPCS: 36415; 80053; 80061; 83036; 84443; 85025

== ENCOUNTER 2023-09-07 07:26 | Outpatient (REF) | payer MEDICARE, BC, SELFPAY ==
--- NOTE | ~2023-09-07 | XR_ITS ---
EXAMINATION: XR PELVIS CLINICAL INFORMATION: Primary osteoarthritis of the bilateral hips. COMPARISON: Radiographs dated 03/30/2023. TECHNIQUE: AP view of the pelvis. FINDINGS: There is bony demineralization. There is moderately severe narrowing of the right acetabular joint space, in particular medially. There is marked narrowing of the left acetabular joint space. The femoral heads are smooth. There is no fracture or dislocation. The bilateral sacroiliac joints and the pubic symphysis are intact. There are femoral atherosclerotic calcifications. There is incompletely covered lumbar orthopedic hardware. XR/XR pelvis 1-2V IMPRESSION: There are marked degenerative changes of the hips, left greater than right. No fracture or dislocation is seen.
== END 2023-09-07 07:27 | disposition home or self-care (01) ==
LOC: HO.HOSX 07:26
PROVIDERS: Visit Provider Orthopaedic Surgery
DX: M16.0 Bilateral primary osteoarthritis of hip (principal)
CPT/HCPCS: 72170; 99212

== ENCOUNTER 2023-09-07 09:21 | Outpatient (AMB) | payer MEDICARE, BC, SELFPAY ==
[2023-09-07 09:39] VITALS: BMI 28.0
--- NOTE | 2023-09-07 09:39 | A.OFFVIS_ITS ---
Intake Vital Signs 09/07/23 09:39 Height 5 ft 5.5 in Weight 171 lb BMI 28.0 Intake Visit Reasons: Preop LT CLAIRE 09/12/23 Intake Note: Jane is a 72 year old female who presents with complaints of progressively worsening left hip pain. Most of the pain is located within her left groin. The patient describes her left hip pain as sharp and severe in nature, 10/10. The patient also has intermittent pain in her right hip. She states that her right hip pain is tolerable to her at this point. The patient has difficulty walking even short distances because of her left hip pain. She has tried Tylenol and anti-inflammatory medicines which gave her minimal relief. At this point the patient's left hip pain is interfering with her activities of daily living and her ability to sleep well through the night. Allergies Penicillins Allergy (Intermediate, Verified 09/07/23 09:43) Rash Medication List - Last Reconciled 09/07/23 by Gregory Martinez MD acetaminophen 1,000 mg PO BID PRN atorvastatin 40 mg PO BEDTIME cholecalciferol (vitamin D3) 25 mcg PO QAM metoprolol succinate ER 100 mg PO BEDTIME omega-3 fatty acids (Fish Oil Concentrate) 1,000 mg PO QAM walker Folding front wheeled walker [facility] Medical History Arthritis Sinus tachycardia Spinal stenosis Claudication Elevated LFTs Knee pain, left Mammogram normal COPD (chronic obstructive pulmonary disease) HTN (hypertension) Osteoarthritis of knees, bilateral Ex-smoker for more than 1 year Hyperlipidemia Surgical History H/O colonoscopy Hx of appendectomy Hx of lumbar discectomy Hx of cervical discectomy H/O knee surgery Family History Mother Diabetes Fibromyalgia Father Abnormal cardiovascular function Brother Substance use disorder Social History Household Members Other:: son Housing: House Are you a primary health care analyst to a significant other at home: No Do you presently have visiting nurse or other home services: No Alcohol intake: current Alcohol intake frequency: a few times a week Patient Tobacco Use Status: Former Tobacco user Quit Date: 2017 Tobacco use type: Cigarette Years Smoked: 40 e-Cigarette/Vaping Use: Former Use Current occupational status: retired Cognitive needs: No Hearing needs: No Vision needs: Yes Physical Exam Vital Signs: BMI result Body Mass Index 28.0 Const Other: Well-nourished well-developed very friendly female awake alert and oriented x3 in no acute distress Lungs - clear to auscultation bilaterally with symmetric expansion Cardiovascular exam - regular rate and rhythm Abdominal exam - soft nontender nondistended Extrem Other: Bilateral lower extremity examination shows good capillary refill, no skin lesions noted, normal sensation light touch Left hip examination shows decreased range of motion when compared to her right hip, pain with range of motion, no tenderness over her bursa Results Reviewed Results Reviewed: X-rays of the patient's left hip show end-stage degenerative joint disease with grade 4 [id number] arthritis, subchondral sclerosis, osteophyte formation, no acute bony abnormalities Assessment & Plan Assessment & Plan (1) Arthritis of left hip: Code(s): M16.12 - Unilateral primary osteoarthritis, left hip Plan Ms. Shrestha presents with progressively worsening left hip pain due to end-stage degenerative joint disease. I had a lengthy discussion with the patient regarding the treatment options. At this point she has failed continued non op erative treatments. The risks and benefits of left total hip replacement surgery were discussed at length with the patient. The patient wishes to proceed with surgery. manager student services will be consulted following her surgery for home physical therapy and nursing. The patient will follow-up as instructed. Feel free to call me at any time should questions regarding her orthopedic management arise. I spent 22 minutes in reviewing the patient's records and imaging studies, seeing the patient and documenting in the medical record. Orders: Orders XR pelvis 1-2V Today M16.0 - Bilateral primary osteoarthritis of hip Coding Level of Care Code Est Pt Level 2 (96534) Diagnoses Arthritis of left hip M16.12
== END 2023-09-07 10:12 | disposition home or self-care (01) ==
PROVIDERS: PCP Internal Medicine; Visit Provider Orthopaedic Surgery
DX: M16.12 Unilateral primary osteoarthritis, left hip (principal)
CPT/HCPCS: 99213

== ENCOUNTER 2023-09-12 07:51 | Inpatient (IN) | payer MEDICARE, BC, SELFPAY ==
[2023-08-30 12:00] VITALS: BP 126/58; PULSE 71; RESP 18; O2SAT 97; BMI 27.5
--- NOTE | 2023-08-30 12:15 | P.CONAN_ITS ---
Documented by User: Tanisha Sewell NP 08/30/23 12:23 HPI - Anesthesia Eval Consult details Narrative: 72yo F for Left Hip Total Replacement, 09/12/23 PCP cleared No recent illness No CP/SOB at rest. Very limited activity d/t hip pain. COPD. Ex smoker (quit 5 years). Does not use inhalers PMFSH Active Problems Active Problems: All Active Problems (Updated 08/30/23 @ 11:54 by Patricia Mercado RN) Osteoarthritis of hips, bilateral (Acute) Hx of colonoscopy (Acute) Sinus tachycardia (Acute) Arthritis of left hip (Acute) Left hip pain (Acute) Hip pain, bilateral (Acute) Osteoarthritis of knees, bilateral (Acute) Knee pain, bilateral (Acute) Vitamin D deficiency (Acute) Neuropathy (Acute) Hx of cervical spine surgery (Acute) Hx of lumbosacral spine surgery (Acute) Leg weakness, bilateral (Acute) Spinal stenosis (Acute) Annual physical exam (Acute) Claudication (Acute) Elevated LFTs (Acute) Knee pain, left (Acute) Mammogram normal (Acute) COPD (chronic obstructive pulmonary disease) (Acute) HTN (hypertension) (Acute) Osteoarthritis of knees, bilateral (Acute) Ex-smoker for more than 1 year (Acute) Hyperlipidemia (Acute) Past Medical History Medical History Arthritis Sinus tachycardia Spinal stenosis Claudication Elevated LFTs Knee pain, left Mammogram normal COPD (chronic obstructive pulmonary disease) HTN (hypertension) Osteoarthritis of knees, bilateral Ex-smoker for more than 1 year Hyperlipidemia Family History Family History Mother Diabetes Fibromyalgia Father Abnormal cardiovascular function Brother Substance use disorder Family history of problems with anesthesia: No Surgical History Surgical History H/O colonoscopy Hx of appendectomy Hx of lumbar discectomy Hx of cervical discectomy H/O knee surgery History of Problems with Anesthesia: No Social History Social History Household Members Other:: son Housing: House Are you a primary farm or ranch animal caretaker to a significant other at home: No Do you presently have visiting nurse or other home services: No Alcohol intake: current Alcohol intake frequency: a few times a week Patient Tobacco Use Status: Former Tobacco user Quit Date: 2017 Tobacco use type: Cigarette Years Smoked: 40 e-Cigarette/Vaping Use: Former Use Use of substances other than those prescribed or required for medical reasons: No Have you been hit, kicked, punched, or otherwise hurt by someone within the past year? If so, by whom?: No Are you DNR?: No Advance Directives: No (states two sons are HCP's) Advance Directives Information Provided: Yes (as above noted) Advance Directives on File: No Recently lost weight without trying: No Nutrition Risks: No Nutritional Risk Poor oral hygiene: No (extracted teeth 1 bottom RT, 2 upper LT/dental implant LT lower/crowns) Current occupational status: retired Cognitive needs: No Hearing needs: No Vision needs: Yes Meds Allergies Allergy/AdvReac Type Severity Reaction Status Date / Time Penicillins Allergy Intermediate Rash Verified 09/12/23 08:06 Home Medications Medication Instructions Recorded Confirmed Last Taken Type cholecalciferol (vitamin D3) 25 25 mcg PO QAM 10/15/20 09/12/23 Unknown History mcg (1,000 unit) capsule omega-3 fatty acids 1,000 mg 1,000 mg PO QAM 10/15/20 09/12/23 09/03/23 History capsule (Fish Oil Concentrate) acetaminophen 500 mg tablet 1,000 mg PO BID PRN hip pain 08/30/23 09/12/23 Unknown History atorvastatin 40 mg tablet 40 mg PO BEDTIME 08/30/23 09/12/23 Unknown History metoprolol succinate 100 mg 100 mg PO BEDTIME 08/30/23 09/12/23 Unknown History tablet,extended release 24 hr Exam Height,Weight and Vital Signs: Height 5 ft 5.5 in Weight 76.204 kg Last Vital Signs Pulse 71 08/30/23 12:00 Resp 18 08/30/23 12:00 BP 126/58 L 08/30/23 12:00 Pulse Ox 97 08/30/23 12:00 O2 Del Method Room Air 08/30/23 12:00 Pertinent Lab Results Pertinent Lab Results: Laboratory Tests 08/23/23 08/23/23 08/23/23 10:07 10:07 10:09 WBC 7.4 Hgb 14.5 Hct 42.7 Plt Count 226 Sodium 140 Potassium 4.4 Chloride 103 Carbon Dioxide 26 BUN 17 H Creatinine 0.75 Narrative Narrative: EKG 08/2023 NSR @ 76 Airway Mallampati Class: II TM Dist: >3cm Neck ROM: Full Loose/Missing/Broken Teeth: Yes (Right molars missing, all teeth crowned, left lower dental implant) Heart: RRR Lungs: CTAB Assessment and Plan Assessment Anesthesia Assessment: Anesthesia Plan Discussed and PAT Visit Final Anesthetic Review Family History of Problems with Anesthesia: No History of Problems with Anesthesia: No Documented by User: Paris Woodruff MD 09/12/23 10:05 [facility] Past Medical History Medical History Arthritis Sinus tachycardia Spinal stenosis Claudication Elevated LFTs Knee pain, left Mammogram normal COPD (chronic obstructive pulmonary disease) HTN (hypertension) Osteoarthritis of knees, bilateral Ex-smoker for more than 1 year Hyperlipidemia Family History Family History Mother Diabetes Fibromyalgia Father Abnormal cardiovascular function Brother Substance use disorder Surgical History Surgical History H/O colonoscopy Hx of appendectomy Hx of lumbar discectomy Hx of cervical discectomy H/O knee surgery Social History Social History Household Members Other:: son Housing: House Are you a primary farm or ranch animal caretaker to a significant other at home: No Do you presently have visiting nurse or other home services: No Alcohol intake: current Alcohol intake frequency: a few times a week Patient Tobacco Use Status: Former Tobacco user Quit Date: 2017 Tobacco use type: Cigarette Years Smoked: 40 e-Cigarette/Vaping Use: Former Use Use of substances other than those prescribed or required for medical reasons: No Have you been hit, kicked, punched, or otherwise hurt by someone within the past year? If so, by whom?: No Are you DNR?: No Advance Directives: No (states two sons are HCP's) Advance Directives Information Provided: Yes (as above noted) Advance Directives on File: No Recently lost weight without trying: No Nutrition Risks: No Nutritional Risk Poor oral hygiene: No (extracted teeth 1 bottom RT, 2 upper LT/dental implant LT lower/crowns) Current occupational status: retired Cognitive needs: No Hearing needs: No Vision needs: Yes Meds Allergies Allergy/AdvReac Type Severity Reaction Status Date / Time Penicillins Allergy Intermediate Rash Verified 09/12/23 08:06 Home Medications Medication Instructions Recorded Confirmed Last Taken Type cholecalciferol (vitamin D3) 25 25 mcg PO QAM 10/15/20 09/12/23 Unknown History mcg (1,000 unit) capsule omega-3 fatty acids 1,000 mg 1,000 mg PO QAM 10/15/20 09/12/23 09/03/23 History capsule (Fish Oil Concentrate) acetaminophen 500 mg tablet 1,000 mg PO BID PRN hip pain 08/30/23 09/12/23 Unknown History atorvastatin 40 mg tablet 40 mg PO BEDTIME 08/30/23 09/12/23 Unknown History metoprolol succinate 100 mg 100 mg PO BEDTIME 08/30/23 09/12/23 Unknown History tablet,extended release 24 hr Assessment and Plan Assessment Anesthesia Assessment: Chart Reviewed Final Anesthetic Review NPO: Yes ASA Class: III Final Preanesthetic Review: No Changes in Pt Med Stat, Meds/Allgs Chart Reviewed, Consent Obtained/Reviewed and Anes Risks/Benef Reviewed Patient Risk: Intermediate Procedure Risk: Intermediate Anesthetic Plan Anesthetic Plan: GA Disposition: Standard PACU
[2023-08-30 13:54] LABS: MRSA Nasal PCR NEGATIVE (Negative); SA Nasal PCR NEGATIVE (Negative)
[2023-09-12] VITALS (13 sets, daily range): BP systolic 125–159; BP diastolic 60–77; PULSE 58–77; RESP 10–18; TEMP 36.1–36.7; O2SAT 94–100; BMI 27.9
--- NOTE | ~2023-09-12 | XR_ITS ---
EXAMINATION: XR PELVIS CLINICAL INFORMATION: Left CLAIRE, postop COMPARISON: Pelvis 09/07/2023 TECHNIQUE: AP portable view of the pelvis. FINDINGS: There is bony demineralization. Interval right total hip replacement with the acetabular component secured with a screw and cerclage wire about the proximal shaft of the femoral component. No fracture or periprosthetic lucency. No evidence of hardware complication. Marked osteoarthritis of the right hip is seen. The pubic symphysis is within normal limits. No fracture or dislocation. Sacroiliac joints and pubic symphysis are intact. There are femoral atherosclerotic calcifications. Partial visualization of lumbar orthopedic hardware. XR/XR pelvis 1-2V IMPRESSION: Satisfactory appearance of left total hip arthroplasty.
--- NOTE | 2023-09-12 08:17 | PHA.MEDREC ---
Pharmacy Consult ? Medication Reconciliation Pharmacy has reviewed the medication reconciliation done by the RN.
[2023-09-12] MEDS: oxyCODONE HCl ER 10 MG TAB.ER.12H PO ×2 (08:29→19:56)
[2023-09-12] MEDS: Lactated Ringers 1,000 ML 100 ML IVCONT ×2 (08:47→16:02)
--- NOTE | 2023-09-12 13:49 | P.BOP_ITS ---
Brief Operative Note Date of Service: 09/12/23 Pre-op diagnosis: Left hip degenerative joint disease Post-op diagnosis: same Procedure: Left total hip arthroplasty Implants: Jasper press-fit total hip arthroplasty with an Accolde II femoral stem size 5 with a 127 degree neck-shaft angle, a Trident II Tritanium acetabular component with cluster hole size 50, a Biolox ceramic femoral head size 36 with a-5 mm neck, polyethylene liner size 36D with a 0 degree lip, 1 Bioceros-Coupang cable, 2 cancellous bone screws measuring 25 mm in length and 20 mm in length Surgeon: Gregory Martinez MD Anesthesia: GETA Was an Ophthalmic Medical Technician used for this Procedure?: Yes Ophthalmic Medical Technician: Karin Calloway Estimated blood loss (mL): 200 Pathology: other (Left femoral head) Condition: stable Disposition: PACU
--- NOTE | 2023-09-12 13:52 | W.PM.OPN ---
Operative Note Operative Note Date of Service: 09/12/23 Narrative: After the patient was identified as Jane Shrestha and her left hip was initialed by myself the patient was brought to the operating room where general anesthesia via endotracheal tube was induced by the anesthesiologist in routine fashion. Because of the patient's allergy to penicillin she was given 900 mg of IV clindamycin for infection prophylaxis. The patient was then gently rolled into the lateral position. An axillary roll was put into place. All bony prominences were well padded. The patient's pelvis was held securely with hip bolsters. The patient's left hip region and lower extremity were prepped and draped in sterile fashion. A #10 scalpel blade was then used to make a curvilinear incision centered over the greater trochanter. The subcutaneous tissues were dissected using electrocautery down to the fascia cade. The fascia cade was then split in line with the skin incision using electrocautery. The split in the fascia cade was curved posteriorly along its cephalad aspect to help prevent injury to the innervation of the tensor fascia cade muscle. The patient's leg was gently externally rotated. A lateral Brandt approach was then taken down to the anterior joint capsule. The anterior half of the vastus lateralis was split 1 cm from its insertion and tagged with #2 Ethibond suture. The anterior 1/3 of the gluteus medius incision was then split using electrocautery and tagged with #2 Ethibond suture. An anterior capsulectomy was then performed using electrocautery. The patient's femoral head was then dislocated anteriorly using a hook and gentle traction. Soft tissues were retracted around the femoral neck. The femoral neck cut was then made using a sagittal saw 1 cm proximal to the lesser trochanter. Our attention was then directed to the acetabulum. The labrum was removed using electrocautery. Soft tissue within the cotyloid notch was removed using electrocautery and a rongeur. The femoral head measured to be a size 44 mm. Thus, reaming was begun with a 44 mm reamer. Reaming was performed at 45 degrees of abduction and 20 degrees of anteversion. Reaming was increased incrementally up to a size 50 reamer. At this point we had reached the medial wall of the acetabulum. The acetabulum was irrigated with copious amounts of normal saline solution via pulse lavage. The final size 50 acetabular component was then impacted into place with 45 degrees of abduction and 20 degrees of anteversion. Two cancellous screws were then placed into the superior position. The anterior screw measured 25 mm in length and the posterior screw measured 20 mm in length. The acetabular component was irrigated with copious amounts of normal saline solution via pulse lavage. The polyethylene liner was then impacted into place with the lip in the posterior-superior position. A small sponge was placed into the acetabular component to protect it during preparation of the proximal femur. Our attention was then directed to the proximal femur. A Dall-Miles cable was placed just distal to the lesser trochanter to help prevent periprosthetic fracture. The patient's leg was then placed into a sterile pouch along the anterior aspect of the surgical suite table. Soft tissues were retracted around the proximal femur. A box cutting osteotome was used to make a groove in the medial aspect of the greater trochanter. Broaching was begun with a size 1 broach. Broaching was increased up to a size 5 broach. The size 5 broach fit well. There was both linear and rotational stability. The broach was removed. The intramedullary canal was irrigated with copious amounts of normal saline solution via pulse lavage. The final implant was impacted into place. There was both rotational and linear stability. The Dall-Miles cable was tightened and cut in routine fashion. A trial size 36 head with a -5 mm neck was put into place. The hip was reduced. Leg lengths were clinically equal. The hip was taken through a full range of motion. There was no instability. The hip was once again dislocated and the patient's leg was placed into the sterile pouch. The trial head was removed. The wound was irrigated with copious amounts of normal saline solution via pulse lavage. The final head was impacted in the place. Leg lengths were clinically equal. Hip was taken through a full range of motion. There was no instability. The patient's leg was then placed onto a well-padded Gordon stand. The wound was once again irrigated. The vastus lateralis and tensor fascia cade tendons were repaired with #2 Ethibond [id number] interrupted suture. The wound was once again irrigated. The fascia cade was closed with #2 Ethibond [id number] interrupted suture as well as #1 Vicryl [id number] interrupted suture. The wound was once again irrigated. The subcutaneous tissues were closed with 0 Vicryl and 2-0 Vicryl interrupted suture. The skin was closed with skin lidia. Dry sterile dressing was placed over the incision. The patient was gently rolled into the supine position. The patient was awoken and extubated in the operating room. The patient was transferred to the recovery room in stable condition.
[2023-09-12] MEDS: HYDROmorphone HCl 0.5 MG/0.5 ML SYRINGE 0.25 MG IVPUSH (13:57)
[2023-09-12] MEDS: fentaNYL citrate/PF 100 MCG/2 ML VIAL 25 MCG IVPUSH ×2 (14:22→14:38)
[2023-09-12] MEDS: Cholecalciferol (Vitamin D3) 25 MCG TABLET PO (16:04)
[2023-09-12] MEDS: methocarbamoL 750 MG TABLET PO ×2 (16:04→19:56)
[2023-09-12] MEDS: oxyCODONE HCl Immed Release 5 MG TABLET 10 MG PO ×2 (16:04→19:56)
--- NOTE | 2023-09-12 16:52 | HO.PM.IMCN ---
History of Present Illness Data of Consult Service Date: 09/12/23 Requesting physician: Gregory Martinez Primary Care Provider: Qing Aguilar MD [facility] Reason for consult: Postoperative medical management 72-year-old female with past medical history significant for hyperlipidemia and hypertension seen postoperatively for medical management after left hip arthroplasty. She voices no complaints at this time Review of Systems Review of Systems: Denies chest pain Denies shortness of breath Denies nausea vomiting diarrhea Denies fever chills PMFSH Medical History Arthritis Sinus tachycardia Spinal stenosis Claudication Elevated LFTs Knee pain, left Mammogram normal COPD (chronic obstructive pulmonary disease) HTN (hypertension) Osteoarthritis of knees, bilateral Ex-smoker for more than 1 year Hyperlipidemia Family History Mother Diabetes Fibromyalgia Father Abnormal cardiovascular function Brother Substance use disorder Surgical History H/O colonoscopy Hx of appendectomy Hx of lumbar discectomy Hx of cervical discectomy H/O knee surgery Social History Household Members: Other Household Members Other:: son Housing: House Are you a primary healthcare representative to a significant other at home: No Do you presently have visiting nurse or other home services: No Alcohol intake: current Alcohol intake frequency: a few times a week Patient Tobacco Use Status: Former Tobacco user Quit Date: 2017 Tobacco use type: Cigarette Years Smoked: 40 e-Cigarette/Vaping Use: Former Use Use of substances other than those prescribed or required for medical reasons: No Currently Displaying Signs/Symptoms of Drug Intoxication Withdrawal: No Have you been hit, kicked, punched, or otherwise hurt by someone within the past year? If so, by whom?: No Do you feel safe in your current relationship?: No Current Relationship Is there a partner from a previous relationship who is making you feel unsafe now?: No Are you made to feel afraid or neglected: No Are you DNR?: No Advance Directives: No (states two sons are HCP's) Advance Directives Information Provided: Yes (as above noted) Advance Directives on File: No Do you have thoughts of harming others: None Do you have a plan to hurt others: No Plan Recently lost weight without trying: No Eating poorly because of decreased appetite: No Nutrition Risks: No Nutritional Risk Patient : No : No Poor oral hygiene: No Current occupational status: retired Cognitive needs: No Hearing needs: No Vision needs: Yes Meds Allergies Allergy/AdvReac Type Severity Reaction Status Date / Time Penicillins Allergy Intermediate Rash Verified 09/12/23 08:06 Active Medications: Current Medications Aspirin (Aspirin 325 Mg Tablet) 325 mg PO Q12H [facility] Atorvastatin Calcium (Atorvastatin Calcium 40 Mg Tablet) 40 mg PO BEDTIME [facility] Celecoxib (Celecoxib 200 Mg Capsule) 200 mg PO BID [facility] Gabapentin (Gabapentin 100 Mg Capsule) 100 mg PO BEDTIME [facility] Hydromorphone HCl (Hydromorphone Hcl 0.5 Mg/0.5 Ml Syringe) 0.25 mg IVPUSH Q4H PRN; Protocol PRN Reason: Pain, Severe (Pain Scale 7-10) Hydromorphone HCl (Hydromorphone Hcl 0.5 Mg/0.5 Ml Syringe) 0.5 mg IVPUSH Q4H PRN; Protocol PRN Reason: Pain, Severe (Pain Scale 7-10) Lactated Ringer's (Lr) 1,000 mls @ 100 mls/hr IVCONT .Q10H [facility] Last Admin: 09/12/23 16:02 Dose: 100 mls/hr Clindamycin Phosphate (Cleocin) 900 mg in 50 mls @ 50 mls/hr IV Q8H [facility] Methocarbamol (Methocarbamol 750 Mg Tablet) 750 mg PO TID [facility] Last Admin: 09/12/23 16:04 Dose: 750 mg Metoprolol Succinate (Metoprolol Succinate Er 100 Mg Tab.Er.24h) 100 mg PO BEDTIME [facility]; Protocol Oxycodone HCl (Oxycodone Hcl Immed Release 5 Mg Tablet) 5 mg PO Q4H PRN PRN Reason: Pain, Moderate(Pain Scale 4-6) Oxycodone HCl (Oxycodone Hcl Er 10 Mg Tab.Er.12h) 10 mg PO BID [facility] Oxycodone HCl (Oxycodone Hcl Immed Release 5 Mg Tablet) 10 mg PO Q4H PRN PRN Reason: Pain, Moderate(Pain Scale 4-6) Last Admin: 09/12/23 16:04 Dose: 10 mg Sodium Chloride (0.9 % Sodium Chloride Flush 3 Ml Syringe) 3 ml IVFLUSH QSHIFT [facility] Last Admin: 09/12/23 16:05 Dose: Not Given Vitamin D (Cholecalciferol (Vitamin D3) 25 Mcg Tablet) 25 mcg PO DAILY@0900 [facility] Last Admin: 09/12/23 16:04 Dose: 25 mcg Home Medications Medication Instructions Recorded Confirmed Last Taken Type cholecalciferol (vitamin D3) 25 25 mcg PO QAM 10/15/20 09/12/23 Unknown History mcg (1,000 unit) capsule omega-3 fatty acids 1,000 mg 1,000 mg PO QAM 10/15/20 09/12/23 09/03/23 History capsule (Fish Oil Concentrate) acetaminophen 500 mg tablet 1,000 mg PO BID PRN hip pain 08/30/23 09/12/23 Unknown History atorvastatin 40 mg tablet 40 mg PO BEDTIME 08/30/23 09/12/23 Unknown History metoprolol succinate 100 mg 100 mg PO BEDTIME 08/30/23 09/12/23 Unknown History tablet,extended release 24 hr Physical Exam Vital Signs and Narrative: Vital Signs: Last Vital Signs Temp 97.9 F 09/12/23 16:00 Pulse 70 09/12/23 16:00 Resp 18 09/12/23 16:00 BP 125/64 09/12/23 16:00 Pulse Ox 98 09/12/23 16:00 O2 Del Method Nasal Cannula 09/12/23 16:00 O2 Flow Rate 2 09/12/23 16:00 BMI result Body Mass Index 27.9 Const: Other: Awake alert oriented x3 in no acute distress Resp: Other: Clear to auscultation bilaterally no rales rhonchi or wheezes Cardio: Other: No S4; positive S1-S2; no S3 murmurs rubs or gallops GI: Other: Soft nontender nondistended normoactive bowel sounds Extrem: Other: No edema bilaterally. CMS to left foot intact Assessment and Plan (1) Arthritis of left hip: Status: Acute (2) HTN (hypertension): Qualifiers: Hypertension type: primary hypertension Qualified Code(s): I10 - Essential (primary) hypertension Status: Acute (3) Hyperlipidemia: Qualifiers: Hyperlipidemia type: unspecified Qualified Code(s): E78.5 - Hyperlipidemia, unspecified Status: Acute Plan 72-year-old female with past medical history significant for hypertension and hyperlipidemia seen for routine postoperative medical management after left hip arthroplasty. No acute issues in the immediate postoperative period. 1. Status post left hip arthroplasty -as per ortho 2. Hypertension -acceptable control on metoprolol. .. Continue same -adjust as indicated 3. Hyperlipidemia -will continue atorvastatin at outpatient dosing -LFTs acceptable drawn on 08/23/2023 Thank you for the consultation. Will follow in a.m.
[2023-09-12] MEDS: Aspirin 325 MG TABLET PO (19:55)
[2023-09-12] MEDS: Atorvastatin Calcium 40 MG TABLET PO (19:56)
[2023-09-12] MEDS: Metoprolol Succinate ER 100 MG TAB.ER.24H PO (19:57)
[2023-09-12] MEDS: Celecoxib 200 MG CAPSULE PO (19:57)
[2023-09-13] MEDS: Lactated Ringers 1,000 ML 100 ML IVCONT (01:08)
[2023-09-13] MEDS: 0.9 % Sodium Chloride Flush 3 ML SYRINGE IVFLUSH (01:09)
[2023-09-13 03:55] VITALS: BP 149/70; PULSE 68; RESP 16; TEMP 35.9; O2SAT 95
[2023-09-13] MEDS: oxyCODONE HCl Immed Release 5 MG TABLET 10 MG PO (04:34)
[2023-09-13] MEDS: Clindamycin Phosphate/D5W 900 MG/50 ML PIGGYBACK 50 MG IV ×2 (04:34→13:51)
[2023-09-13] MEDS: Aspirin 325 MG TABLET PO (04:34)
[2023-09-13 06:05] LABS: Anion Gap 14 (12-20); Blood Urea Nitrogen 18 mg/dL (9-16); Calcium 9.5 mg/dL (8.4-10.2); Carbon Dioxide 25 mmol/L (22-29); Chloride 102 mmol/L (96-108); Creatinine Clr Calc Pharmacy 69.7; Estimated Glomerular Filt Rate > 60; Glucose Fasting 119 mg/dL (60-99); Potassium 4.5 mmol/L (3.3-5.1); Sodium 136 mmol/L (135-145)
[2023-09-13 07:36] VITALS: BP 135/61; PULSE 69; RESP 16; TEMP 36; O2SAT 95
--- NOTE | 2023-09-13 09:51 | MHC.CM.PN ---
Addendum entered by Bonita Loyola RN 09/13/23 15:07: Patient is medically cleared for dc home with new [facility]. Son is at bedside to transport. [facility] is aware of dc. Addendum entered by Bonita Loyola RN 09/13/23 10:45: [facility] has accepted patient. Original Note: [facility] delivered. Patient is from home w/ adult son/HCP Jack. Patient reports she ambulates with a cane and independent w/ ADL's. No services. Does have a walker in the home that she does not use. PCP Qing Aguilar MD HCP Son Jack - copy requested DP: PT/OT rec home with services. First choice [facility]. Referral sent in [facility]. Patient will have own ride home. CM will continue to follow.
[2023-09-13] MEDS: methocarbamoL 750 MG TABLET PO ×2 (09:52→15:12)
[2023-09-13] MEDS: Cholecalciferol (Vitamin D3) 25 MCG TABLET PO (09:52)
[2023-09-13] MEDS: oxyCODONE HCl ER 10 MG TAB.ER.12H PO (09:52)
[2023-09-13] MEDS: Celecoxib 200 MG CAPSULE PO (09:52)
--- NOTE | 2023-09-13 11:23 | HO.PM.IMPN ---
Subjective Subjective Date of Service: 09/13/23 Interval History: Doing well this a.m.. Voices no complaints Review of Systems Denies chest pain Denies shortness of breath Denies nausea vomiting diarrhea Denies fever chills Physical Exam Vital Signs: Vital Signs: Last Vital Signs Temp 96.8 F 09/13/23 07:36 Pulse 69 09/13/23 07:36 Resp 16 09/13/23 07:36 BP 135/61 09/13/23 07:36 Pulse Ox 95 09/13/23 07:36 O2 Del Method Room Air 09/13/23 07:36 O2 Flow Rate 2 09/12/23 16:00 BMI result Body Mass Index 27.9 Const: Other: Awake alert oriented x3 in no acute distress Resp: Other: Clear to auscultation bilaterally no rales rhonchi or wheezes Cardio: Other: No S4; positive S1-S2; no S3 murmurs rubs or gallops GI: Other: Soft nontender nondistended normoactive bowel sounds Extrem: Other: No edema bilaterally. CMS to left foot intact Objective Data Active Medications Aspirin (Aspirin 325 Mg Tablet) 325 mg PO Q12H [facility] Last Admin: 09/13/23 04:34 Dose: 325 mg Documented By: JOSEF Atorvastatin Calcium (Atorvastatin Calcium 40 Mg Tablet) 40 mg PO BEDTIME [facility] Last Admin: 09/12/23 19:56 Dose: 40 mg Documented By: CARLOS Celecoxib (Celecoxib 200 Mg Capsule) 200 mg PO BID [facility] Last Admin: 09/13/23 09:52 Dose: 200 mg Documented By: WILLIS Hydromorphone HCl (Hydromorphone Hcl 0.5 Mg/0.5 Ml Syringe) 0.25 mg IVPUSH Q4H PRN; Protocol PRN Reason: Pain, Severe (Pain Scale 7-10) Hydromorphone HCl (Hydromorphone Hcl 0.5 Mg/0.5 Ml Syringe) 0.5 mg IVPUSH Q4H PRN; Protocol PRN Reason: Pain, Severe (Pain Scale 7-10) Lactated Ringer's (Lr) 1,000 mls @ 100 mls/hr IVCONT .Q10H [facility] Last Admin: 09/13/23 01:08 Dose: 100 mls/hr Documented By: HO.ANTOIC Clindamycin Phosphate (Cleocin) 900 mg in 50 mls @ 50 mls/hr IV Q8H [facility] Last Infusion: 09/13/23 05:52 Dose: Infused Documented By: JOSEF Methocarbamol (Methocarbamol 750 Mg Tablet) 750 mg PO TID [facility] Last Admin: 09/13/23 09:52 Dose: 750 mg Documented By: WILLIS Metoprolol Succinate (Metoprolol Succinate Er 100 Mg Tab.Er.24h) 100 mg PO BEDTIME [facility]; Protocol Last Admin: 09/12/23 19:57 Dose: 100 mg Documented By: CARLOS Oxycodone HCl (Oxycodone Hcl Immed Release 5 Mg Tablet) 5 mg PO Q4H PRN PRN Reason: Pain, Moderate(Pain Scale 4-6) Oxycodone HCl (Oxycodone Hcl Er 10 Mg Tab.Er.12h) 10 mg PO BID [facility] Last Admin: 09/13/23 09:52 Dose: 10 mg Documented By: WILLIS Oxycodone HCl (Oxycodone Hcl Immed Release 5 Mg Tablet) 10 mg PO Q4H PRN PRN Reason: Pain, Moderate(Pain Scale 4-6) Last Admin: 09/13/23 04:34 Dose: 10 mg Documented By: JOSEF Sodium Chloride (0.9 % Sodium Chloride Flush 3 Ml Syringe) 3 ml IVFLUSH QSHIFT [facility] Last Admin: 09/13/23 09:54 Dose: Not Given Documented By: WILLIS Non-Admin Reason: IV Running Vitamin D (Cholecalciferol (Vitamin D3) 25 Mcg Tablet) 25 mcg PO DAILY@0900 [facility] Last Admin: 09/13/23 09:52 Dose: 25 mcg Documented By: WILLIS Labs 09/13/23 05:06 Labs: Laboratory Results - last 24 hr 09/13/23 05:06 Anion Gap 14 Estim Creat Clear Calc 69.7 Estimated GFR > 60 Fasting Glucose 119 H Calcium 9.5 Assessment and Plan (1) Arthritis of left hip: Status: Acute Plan 72-year-old female with past medical history significant for hypertension and hyperlipidemia seen for routine postoperative medical management after left hip arthroplasty. No acute issues in the immediate postoperative period. 1. Status post left hip arthroplasty -as per ortho 2. Hypertension -acceptable control on metoprolol. .. Continue same -adjust as indicated 3. Hyperlipidemia -will continue atorvastatin at outpatient dosing -LFTs acceptable drawn on 08/23/2023 Thank you for the consultation. Will sign off at this time. Please call if any issues arise. Quality Stroke Does the patient have a stroke diagnosis?: No VTE Prior VTE?: No VTE Risk Level:: Surgical - high VTE Device Contraindication: Treatment Not Tolerated VTE Drug Contraindication: N/A - Med Ordered
--- NOTE | 2023-09-13 12:27 | P.DS_ITS ---
DS: Providers Provider Date of Service: 09/13/23 Date of admission: 09/12/23 07:51 Primary care physician: Qing Aguilar MD Consults: 09/12/23 15:35 Consult to Hospitalist Routine Comment: Consulting Provider: Hospitalist Reason For Exam: Routine medical management DS: Diagnosis Discharge Diagnosis (1) Arthritis of left hip: Status: Acute DS: Summary Hospital Course Hospital Course: The patient underwent a successful left total hip arthroplasty, they were transferred to PACU and then to the floor to recover. During their stay, their vitals were stable, afebrile at 96.8. Labs were unremarkable, 11.5/33.3. POD 1 they were started on Aspirin 325mg po bid for DVT ppx, they also received Physical Therapy services twice a day. Prior to discharge, their dressing was clean dry and intact, and the plan was to be discharged home with VNA services. Time Attestation Discharge coordination time: Less than 30 minutes Quality: Safe Use of Opioids Does Pt have an Active Cancer Diagnosis on the Problem List?: No Quality: Stroke Does the patient have a stroke diagnosis?: No Physical Exam Vital Signs: Vital Signs: Last Vital Signs Temp 96.8 F 09/13/23 07:36 Pulse 69 09/13/23 07:36 Resp 16 09/13/23 07:36 BP 135/61 09/13/23 07:36 Pulse Ox 95 09/13/23 07:36 O2 Del Method Room Air 09/13/23 07:36 O2 Flow Rate 2 09/12/23 16:00 BMI result Body Mass Index 27.9 Const: General: cooperative, healthy appearing and no acute distress Resp: Effort & Inspection: normal respiratory effort and able to speak in complete sentences Cardio: Rate: regular rate Peripheral pulses: Peripheral pulses 2+ throughout GI: Palpation (GI): Soft to palpation Skin: Lesions: no lesions Rashes: no rashes Extrem: Other: left hip dressing is c/d/i. Able to dorsi/plantar flex. Calf is supple and nontender. Sensation intact. Pedal pulse intact. DS: Data Data Completed and Pending Pending studies at discharge: Pending at discharge 09/12/23 12:19 Surgical [PTH] Routine Labs on day of discharge: Laboratory Results - last 24 hr 09/13/23 05:06 Sodium 136 Potassium 4.5 Chloride 102 Carbon Dioxide 25 Anion Gap 14 BUN 18 H Creatinine 0.76 Estim Creat Clear Calc 69.7 Estimated GFR > 60 Fasting Glucose 119 H Calcium 9.5 Discharge Plan Discharge Anticipated Discharge Date/Time: 09/13/23 17:01 Patient Disposition: Home Health Service Discharge Diagnosis: s/p LTHA Referrals: Karin Calloway PA-C [Physician [facility] Compliance Specialist] - 09/29/23 2:15 pm Discharge Medications: New celecoxib 200 mg Capsule 200 mg PO BID 30 Days Qty: 60 0RF aspirin 325 mg Tablet 325 mg PO Q12H 42 Days Qty: 84 0RF methocarbamol 750 mg Tablet 750 mg PO TID 7 Days Qty: 21 0RF oxycodone 5 mg Tablet 5 mg PO Q4H PRN (Reason: Pain, Moderate(Pain Scale 4-6)) 7 Days Qty: 42 0RF Rx Instructions: Partial Fill upon patient request. Continued (DME) walker Misc See Rx Instructions .ROUTE .MEDSUPPLY Qty: 1 0RF Rx Instructions: Folding front wheeled walker atorvastatin 40 mg tablet 40 mg PO BEDTIME metoprolol succinate 100 mg tablet extended release 24 hr 100 mg PO BEDTIME omega-3 fatty acids [Fish Oil Concentrate] 1,000 mg capsule 1,000 mg PO QAM cholecalciferol (vitamin D3) 25 mcg (1,000 unit) capsule 25 mcg PO QAM Discontinued acetaminophen 500 mg Tablet 1,000 mg PO BID PRN (Reason: hip pain) Discharge Orders: Discharge Order (Routine); Ordered 09/13/23 Ordered By: Karin Calloway Diet: Advance to usual diet Activity on Discharge: Use cane or walker Stand Alone Forms: Patient Portal Discharge page Care Plan Goals: restore fxn to left hip Health Concerns: None Plan of Treatment: Physical Therapy for total hip arthroplasty: no precautions, gait training, ROM, strength Limit stair climbing No showering, no tub bath-keep dressing clean, dry and intact No driving x6 weeks Continue anticoagulant x 6 weeks Follow up with [facility] in 2 weeks Assessment: stable for d/c
--- NOTE | 2023-09-13 12:32 | W.MHC.F2F ---
Service Date Service Date: 09/13/23 Encounter Date of encounter: 09/13/23 Reasons for Services Signs and symptoms assessed: s/p LTHA. Pt. is considered homebound due to recent surgery. Unable to drive, poor balance, poor gait mechanics. Reason for physical therapy: home safety and mobility, therapeutic exercises, restore joint function, gait/transfer training, assess need for DME and ADL training Reason for occupational therapy: home safety and mobility, therapeutic exercises, restore joint function, gait/transfer training, assess need for DME and ADL training Homebound: Leaving the home is medically contraindicated at this time without the asist of a device and/or another person due th the listed conditions above and below. Reason homebound: unsteady gait / fall risk, leg weakness, pain with ambulation, pain with transfers, poor balance / fall risk and unable to drive Certification: Based on the above findings, I certify that this patient is confined to the home and needs intermittent nursing home care, physical therapy and/or speech therapy, or continues to need occupational therapy. The patient is under my care, and I have initiated the establishment of the plan of care. The patient will be followed by a physician who will periodically review the plan of care. Time Spent With Patient Time: Total time managing care of this patient today ____ minutes.
[2023-09-13 12:50] LABS: Hematocrit 33.3 % (37.0-47.0); Hemoglobin 11.5 g/dl (12.0-16.0)
[2023-09-13] MEDS: HYDROmorphone HCl 0.5 MG/0.5 ML SYRINGE IVPUSH (13:11)
--- NOTE | 2023-09-13 13:19 | P.PNOP_ITS ---
Subjective Subjective Date of Service: 09/13/23 Interval history: pod 1 s/p LT CLAIRE no overnight events resting in bed denies cp, palpitations, sob Physical Exam Vital Signs: Vital Signs: Last Vital Signs Temp 96.8 F 09/13/23 07:36 Pulse 69 09/13/23 07:36 Resp 16 09/13/23 07:36 BP 135/61 09/13/23 07:36 Pulse Ox 95 09/13/23 07:36 O2 Del Method Room Air 09/13/23 07:36 O2 Flow Rate 2 09/12/23 16:00 BMI result Body Mass Index 27.9 Const: General: cooperative, healthy appearing and no acute distress Resp: Effort & Inspection: normal respiratory effort and able to speak in complete sentences Cardio: Rate: regular rate Peripheral pulses: Peripheral pulses 2+ throughout GI: Palpation (GI): Soft to palpation Skin: General skin exam: no rashes or lesions noted Extrem: Other: incision clean dry and intact. [place] intact. No erythema or effusion. Calf supple nontender. Neurovascularly intact. Procedures Date of Service Date of Service: 09/13/23 Progress Note: A&P Assessment and plan (1) History of total left hip replacement: Status: Acute Assessment and Plan: * Continue pain mgmnt * Begin Aspirin for dvt ppx * begin PT for LT CLAIRE * Dispo planning-Pending PT eval, pain mgmnt Time Spent With Patient Time: Total time managing care of this patient today ____ minutes. Quality Stroke Does the patient have a stroke diagnosis?: No VTE Prior VTE?: No VTE Risk Level:: Surgical - high VTE Device Contraindication: Treatment Not Tolerated VTE Drug Contraindication: N/A - Med Ordered
--- NOTE | 2023-09-13 14:34 | HO.POSTANES ---
Post Anesthesia Evaluation Post Anesthesia Evaluation Date of Service: 09/13/23 Vital Signs: Vital Signs Temp Pulse Resp BP Pulse Ox O2 Del Method 09/13/23 07:36 96.8 F 69 16 135/61 95 Room Air 09/13/23 03:55 96.7 F L 68 16 149/70 H 95 Room Air Anesthesia: General Mental Status: Awake Pain Control: Satisfactory Nausea/Vomiting: None Hydration: Adequate Anesthesia-Related Issues: No Anes. Related Issues
== END 2023-09-13 16:03 | disposition home health service (06) | DRG 470 ==
LOC: HO.SSSA 08:57 → HO.S3 14:52
PROVIDERS: Orthopaedic Surgery; Admitting Provider Physician Assistant; PCP Internal Medicine; Visit Provider Physician Assistant
PROC: 0SRB04A Replacement of Left Hip Joint with Ceramic on Polyethylene Synthetic Substitute, Uncemented, Open Approach (ICD-10-PCS; CPT 27130; principal; 2023-09-12 10:10)
DX: M16.12 Unilateral primary osteoarthritis, left hip (principal); J44.9 Chronic obstructive pulmonary disease, unspecified; E78.5 Hyperlipidemia, unspecified; I10 Essential (primary) hypertension; Z87.891 Personal history of nicotine dependence; Z79.899 Other long term (current) drug therapy
CPT/HCPCS: 27130; 36415; 72170; 80048; 85014; 85018; 86850; 86900; 86901; 87640; 87641; 88304; 88311; 96361; 96365; 96366; 96375; 96376; 97110; 97116; 97162; 97165; 99024; C1713; C1776; J0131; J0736; J1100; J1170; J2250; J2371; J2405; J2704; J3010; J3370; J7120

== ENCOUNTER → 2023-09-12 07:51 | Outpatient (BNV) | payer MEDICARE, BC, SELFPAY | PROVIDERS: Admitting Provider Physician Assistant; PCP Internal Medicine; Visit Provider Hospitalist | DX: I10 Essential (primary) hypertension (principal); E78.5 Hyperlipidemia, unspecified | CPT/HCPCS: 99222; 99239 ==

== ENCOUNTER → 2023-09-12 07:51 | Outpatient (BNV) | payer MEDICARE, BC, SELFPAY | PROVIDERS: Admitting Provider Physician Assistant; PCP Internal Medicine; Visit Provider Orthopaedic Surgery | DX: Z47.1 Aftercare following joint replacement surgery (principal); Z96.642 Presence of left artificial hip joint | CPT/HCPCS: 27130; 99024; G0180 ==

== ENCOUNTER → 2023-09-22 23:59 | Outpatient (BNV) | payer MEDICARE, BC, SELFPAY | PROVIDERS: PCP Internal Medicine; Visit Provider Internal Medicine | DX: I73.9 Peripheral vascular disease, unspecified (principal); J44.9 Chronic obstructive pulmonary disease, unspecified; M17.0 Bilateral primary osteoarthritis of knee | CPT/HCPCS: G0180 ==

== ENCOUNTER 2023-09-29 13:56 | Outpatient (AMB) | payer MEDICARE, BC, SELFPAY ==
--- NOTE | 2023-09-29 14:01 | MHC.OFFVIS ---
Intake Intake Visit Reasons: PO-LT CLAIRE 09/12/23 Intake Note: Jane is a 73 year old female who presents for her post operative appointment s/p Left CLAIRE 09/12/2023 Patient reports she is feeling good. She states that she has some swelling in her left foot and states that she does elevate which helps. She has no longer taking narcotics for her discomfort. She has completed formal home physical therapy. She does walk with a walker when she is out her home. Allergies Penicillins Allergy (Intermediate, Verified 09/29/23 14:03) Rash Medication List - Last Reconciled 09/29/23 by Gregory Martinez MD aspirin 325 mg PO Q12H 42 days atorvastatin 40 mg PO BEDTIME celecoxib 200 mg PO BID 30 days cholecalciferol (vitamin D3) 25 mcg PO QAM clindamycin HCl 300 mg PO ONCE methocarbamol 750 mg PO TID 7 days metoprolol succinate ER 100 mg PO BEDTIME omega-3 fatty acids (Fish Oil Concentrate) 1,000 mg PO QAM oxycodone 5 mg PO Q4H PRN 7 days walker Folding front wheeled walker [facility] Medical History Arthritis of left hip Arthritis Sinus tachycardia Spinal stenosis Claudication Elevated LFTs Knee pain, left Mammogram normal COPD (chronic obstructive pulmonary disease) HTN (hypertension) Osteoarthritis of knees, bilateral Ex-smoker for more than 1 year Hyperlipidemia Surgical History H/O colonoscopy Hx of appendectomy Hx of lumbar discectomy Hx of cervical discectomy H/O knee surgery Family History Mother Diabetes Fibromyalgia Father Abnormal cardiovascular function Brother Substance use disorder Social History Household Members: Other Household Members Other:: son Housing: House Are you a primary intensive care anaesthetist to a significant other at home: No Do you presently have visiting nurse or other home services: No Alcohol intake: current Alcohol intake frequency: a few times a week Patient Tobacco Use Status: Former Tobacco user Quit Date: 2017 Tobacco use type: Cigarette Years Smoked: 40 e-Cigarette/Vaping Use: Former Use Current occupational status: retired Cognitive needs: No Hearing needs: No Vision needs: Yes Physical Exam Extrem Other: Left hip examination shows that the surgical incision is healing well, no erythema, minimal discomfort with range of motion Assessment & Plan Assessment & Plan (1) History of total left hip replacement: Code(s): Z96.642 - Presence of left artificial hip joint Plan Ms. Shrestha is doing well after undergoing left total hip replacement surgery on 09/12/2023. Her lidia were removed and Steri-Strips placed over her incision. I did give her a prescription for clindamycin which she will take before any dental work. She will continue with her home exercise program. She will contact me prior to her follow-up appointment in 6 weeks should any questions or concerns arise. I also reviewed the patient's pathology report with her. The report states that lymphoid aggregates within the femoral head are commonly found incidentally in patients her age. The report does state that the pathologist can not rule out a lymphoproliferative disorder. I did discuss this with the patient. The patient does not wish to be evaluated by hematology/oncology at this time. She states that she will contact your office to make a follow-up medical evaluation appointment. Feel free to call me at any time should questions regarding her orthopedic management arise. Medications: New clindamycin HCl Take two caps (600 mg) one hour before any dental work 300 mg PO ONCE 10 caps 0RF Coding Level of Care Code Global (70901) Diagnoses History of total left hip replacement Z96.642
== END 2023-09-29 14:36 | disposition home or self-care (01) ==
PROVIDERS: PCP Internal Medicine; Visit Provider Orthopaedic Surgery
DX: Z96.642 Presence of left artificial hip joint (principal)
CPT/HCPCS: 99024

== ENCOUNTER → 2023-09-29 13:56 | Outpatient (BNVA) | payer MEDICARE, BC, SELFPAY | PROVIDERS: PCP Internal Medicine; Visit Provider Orthopaedic Surgery | DX: Z47.1 Aftercare following joint replacement surgery (principal); Z96.642 Presence of left artificial hip joint | CPT/HCPCS: 99212 ==

== ENCOUNTER 2023-11-10 11:32 | Outpatient (AMB) | payer MEDICARE, BC, SELFPAY ==
--- NOTE | 2023-11-10 11:39 | MHC.OFFVIS ---
Intake Vital Signs 11/10/23 11:47 Height 5 ft 5.5 in Weight 170 lb BMI 27.9 Intake Visit Reasons: PO-LT CLAIRE 09/12/23 DR-follow up Intake Note: Jane is a 73 year old female who presents for her post operative appointment s/p her Left CLAIRE on 09/12/2023 DR. Patient reports she is feeling good and she has been going for walks. She is no longer taking narcotics for discomfort. She does take Tylenol as needed. Allergies Penicillins Allergy (Intermediate, Verified 11/10/23 11:50) Rash Medication List - Last Reconciled 11/10/23 by Gregory Martinez MD acetaminophen (Tylenol Extra Strength) 500 mg PO Q6H PRN aspirin 325 mg PO Q12H 42 days atorvastatin 40 mg PO BEDTIME celecoxib 200 mg PO BID 30 days cholecalciferol (vitamin D3) 25 mcg PO QAM clindamycin HCl 300 mg PO ONCE methocarbamol 750 mg PO TID 7 days metoprolol succinate ER 100 mg PO BEDTIME omega-3 fatty acids (Fish Oil Concentrate) 1,000 mg PO QAM oxycodone 5 mg PO Q4H PRN 7 days walker Folding front wheeled walker PENDING SALE TO [facility] Medical History Arthritis of left hip Arthritis Sinus tachycardia Spinal stenosis Claudication Elevated LFTs Knee pain, left Mammogram normal COPD (chronic obstructive pulmonary disease) HTN (hypertension) Osteoarthritis of knees, bilateral Ex-smoker for more than 1 year Hyperlipidemia Surgical History H/O colonoscopy Hx of appendectomy Hx of lumbar discectomy Hx of cervical discectomy H/O knee surgery Family History Mother Diabetes Fibromyalgia Father Abnormal cardiovascular function Brother Substance use disorder Social History Household Members: Other Household Members Other:: son Housing: House Are you a primary childcare center director to a significant other at home: No Do you presently have visiting nurse or other home services: No Alcohol intake: current Alcohol intake frequency: a few times a week Patient Tobacco Use Status: Former Tobacco user Quit Date: 2017 Tobacco use type: Cigarette Years Smoked: 40 e-Cigarette/Vaping Use: Former Use Current occupational status: retired Cognitive needs: No Hearing needs: No Vision needs: Yes Physical Exam Vital Signs: BMI result Body Mass Index 27.9 Const Other: Well-nourished well-developed very friendly female awake alert and oriented x3 in no acute distress Extrem Other: Bilateral lower extremity examination shows good capillary refill, no skin lesions noted, normal sensation light touch Left hip examination shows that surgical incision is well healed, no erythema, minimal discomfort with range of motion, mild tenderness over her bursa Assessment & Plan Assessment & Plan (1) Left hip pain: Code(s): M25.552 - Pain in left hip Plan Ms. Shrestha continues to do well after undergoing left total replacement surgery on 09/12/2023. She will continue with her exercise program. She does know to take antibiotics before any dental work. She will contact me prior to her follow-up appointment in 2-3 months should any questions or concerns arise. Feel free to call me at any time should questions regarding her orthopedic management arise. I spent 19 minutes in reviewing the patient's records and imaging studies, seeing the patient and documenting in the medical record. Coding Level of Care Code Est Pt Level 2 (69783) Diagnoses Left hip pain M25.552
[2023-11-10 11:47] VITALS: BMI 27.9
== END 2023-11-10 12:01 | disposition home or self-care (01) ==
PROVIDERS: PCP Internal Medicine; Visit Provider Orthopaedic Surgery
DX: M25.552 Pain in left hip (principal); Z96.642 Presence of left artificial hip joint
CPT/HCPCS: 99024

== ENCOUNTER → 2023-11-10 11:32 | Outpatient (BNVA) | payer MEDICARE, BC, SELFPAY | PROVIDERS: PCP Internal Medicine; Visit Provider Orthopaedic Surgery | DX: Z47.89 Encounter for other orthopedic aftercare (principal); M25.552 Pain in left hip; Z98.890 Other specified postprocedural states | CPT/HCPCS: 99212 ==

== ENCOUNTER 2024-01-10 08:50 | Outpatient (AMB) | payer MEDICARE, BC, SELFPAY ==
[2024-01-10 08:52] VITALS: BMI 27.9
--- NOTE | 2024-01-10 08:52 | MHC.OFFVIS ---
Vital Signs 01/10/24 08:52 Height 5 ft 5.5 in Weight 170 lb BMI 27.9 Intake Visit Reasons: OV-LT CLAIRE 09/12/23 DR-follow up Intake Note: Jane is a 73 year old female who presents for a follow up appointment s/p her Left CLAIRE on 09/12/2023 DR. Patient reports her Left hip feels good and has no problems or concerns. She states her Right hip is now hurting. She has taken hydrocodone which gives her fairly good relief. She wished to hold off on right total hip replacement surgery for as long as possible. Allergies Penicillins Allergy (Intermediate, Verified 01/10/24 09:00) Rash Medication List - Last Reconciled 01/10/24 by Gregory Martinez MD acetaminophen (Tylenol Extra Strength) 500 mg PO Q6H PRN aspirin 325 mg PO Q12H 42 days atorvastatin 40 mg PO BEDTIME celecoxib 200 mg PO BID 30 days cholecalciferol (vitamin D3) 25 mcg PO QAM clindamycin HCl 300 mg PO ONCE methocarbamol 750 mg PO TID 7 days metoprolol succinate ER 100 mg PO BEDTIME omega-3 fatty acids (Fish Oil Concentrate) 1,000 mg PO QAM oxycodone 5 mg PO Q4H PRN 7 days walker Folding front wheeled walker ON LICENSE OF [facility] Medical History (Updated 01/10/24 @ 09:23 by Gregory Martinez MD) Arthritis of left hip (09/12/23) Arthritis Sinus tachycardia Spinal stenosis Claudication Elevated LFTs Knee pain, left Mammogram normal COPD (chronic obstructive pulmonary disease) HTN (hypertension) Osteoarthritis of knees, bilateral Ex-smoker for more than 1 year Hyperlipidemia Surgical History (Updated 01/10/24 @ 09:03 by Vilma Zurita CMA) History of left hip replacement H/O colonoscopy Hx of appendectomy Hx of lumbar discectomy Hx of cervical discectomy H/O knee surgery Family History Mother Diabetes Fibromyalgia Father Abnormal cardiovascular function Brother Substance use disorder Social History Household Members: Other Household Members Other:: son Housing: House Are you a primary health care analyst to a significant other at home: No Do you presently have visiting nurse or other home services: No Alcohol intake: current Alcohol intake frequency: a few times a week Patient Tobacco Use Status: Former Tobacco user Quit Date: 2017 Tobacco use type: Cigarette Years Smoked: 40 e-Cigarette/Vaping Use: Former Use Current occupational status: retired Cognitive needs: No Hearing needs: No Vision needs: Yes Physical Exam Vital Signs: BMI result Body Mass Index 27.9 Const Other: Well-nourished well-developed very friendly female awake alert and oriented x3 in no acute distress Extrem Other: Bilateral lower extremity examination shows good capillary refill, no skin lesions noted, normal sensation light touch Left hip examination shows that the surgical incision is well healed, no erythema, minimal discomfort with range of motion, minimal tenderness over her bursa Right hip examination shows decreased range of motion when compared to her left hip, pain with range of motion Results Reviewed Results Reviewed: X-rays of the patient's left hip taken today show a total hip arthroplasty in good position with no signs of loosening, no acute bony abnormalities; AP view of the patient's right hip shows moderate to severe joint space narrowing, subchondral sclerosis, no acute bony abnormalities Assessment & Plan Assessment & Plan (1) Arthritis of right hip: Code(s): M16.11 - Unilateral primary osteoarthritis, right hip Category: Medical Plan Ms. Shrestha continues to do well after undergoing left total hip replacement surgery on 09/12/2023. She does know to take antibiotics before any dental work. The patient does have pain in her right hip due to degenerative joint disease. She wishes to hold off on right total hip replacement surgery for as long as possible. I agree with this plan. I will try to arrange for the patient to have a right hip cortisone injection by Dr. Romero. I did refill her prescription for Vicodin to help with her discomfort in the meantime. Feel free to call me at any time should questions regarding her orthopedic management arise. I spent 21 minutes in reviewing the patient's records and imaging studies, seeing the patient and documenting in the medical record. Orders: Orders XR hip LT min 2V 01/10/24 Z96.642 - Presence of left artificial hip joint Referrals Pain Management Referral M16.11 - Unilateral primary osteoarthritis, right hip Medications: New hydrocodone-acetaminophen 5-325 mg Partial Fill upon patient request. 1 tab PO Q12H PRN 30 tabs 0RF pain 2 weeks Coding Level of Care Code Est Pt Level 3 (78292) Diagnoses Arthritis of right hip M16.11
== END 2024-01-10 09:26 | disposition home or self-care (01) ==
PROVIDERS: PCP Internal Medicine; Visit Provider Orthopaedic Surgery
DX: M16.11 Unilateral primary osteoarthritis, right hip (principal); Z96.642 Presence of left artificial hip joint
CPT/HCPCS: 99214

== ENCOUNTER 2024-01-10 15:40 | Outpatient (REF) | payer MEDICARE, BC, SELFPAY ==
--- NOTE | ~2024-01-10 | XR_ITS ---
EXAMINATION: XR HIP, LEFT CLINICAL INFORMATION: Presence of left artificial hip joint. COMPARISON: 09/12/2023 TECHNIQUE: 2 views of the left hip. FINDINGS: Redemonstration of stabilization hardware partially imaged in the lower thoracic spine. Redemonstration of left total hip replacement with acetabular component secured with screw and a cerclage wire along the proximal shaft of the femoral component. Hardware appears intact. Advanced degenerative changes in the right hip. Pubic symphysis is maintained. Sacroiliac joints are symmetric. Extensive vascular calcifications. XR/XR hip LT min 2V IMPRESSION: Redemonstration of left total hip replacement with acetabular component secured with screw and a cerclage wire along the proximal shaft of the femoral component. Hardware appears intact. Advanced degenerative changes in the right hip.
== END 2024-01-10 15:41 | disposition home or self-care (01) ==
LOC: HO.HOSX 15:40
PROVIDERS: Visit Provider Orthopaedic Surgery
DX: M16.11 Unilateral primary osteoarthritis, right hip (principal); Z96.642 Presence of left artificial hip joint
CPT/HCPCS: 73502; 99212

== ENCOUNTER 2024-04-11 09:20 | Outpatient (AMB) | payer MEDICARE, BC, SELFPAY ==
--- NOTE | 2024-04-11 09:22 | MHC.OFFVIS ---
Intake Visit Reasons: OV - L total Hip Arthroplasty 09/12/23, Right hip pain Intake Note: Jane is a 73 year old female who presents to the office today for a follow up Left total Hip Arthroplasty 09/12/23. Pt states she is feeling well and states her leg is much stronger. Pt denies any concerns at this time. Pt states her right hip is becoming more painful and would like a cortisone injection today. She describes her right hip pain as achy in nature. Most of the pain is along the lateral aspect of her right hip. She wishes to hold off on right total hip replacement surgery for as long as possible. Allergies Penicillins Allergy (Intermediate, Verified 04/11/24 09:31) Rash Medication List - Last Reconciled 04/11/24 by Gregory Martinez MD acetaminophen (Tylenol Extra Strength) 500 mg PO Q6H PRN atorvastatin 40 mg PO BEDTIME cholecalciferol (vitamin D3) 25 mcg PO QAM clindamycin HCl 300 mg PO ONCE metoprolol succinate ER 100 mg PO BEDTIME omega-3 fatty acids (Fish Oil Concentrate) 1,000 mg PO QAM walker Folding front wheeled walker [facility] Medical History (Updated 04/11/24 @ 09:56 by Gregory Martinez MD) Arthritis of left hip (09/12/23) Arthritis Sinus tachycardia Spinal stenosis Claudication Elevated LFTs Knee pain, left Mammogram normal COPD (chronic obstructive pulmonary disease) HTN (hypertension) Osteoarthritis of knees, bilateral Ex-smoker for more than 1 year Hyperlipidemia Surgical History (Updated 01/10/24 @ 09:03 by Vilma Zurita CMA) History of left hip replacement H/O colonoscopy Hx of appendectomy Hx of lumbar discectomy Hx of cervical discectomy H/O knee surgery Family History Mother Diabetes Fibromyalgia Father Abnormal cardiovascular function Brother Substance use disorder Social History Household Members: Other Household Members Other:: son Housing: House Are you a primary managed care coordinator to a significant other at home: No Do you presently have visiting nurse or other home services: No Alcohol intake: current Alcohol intake frequency: a few times a week Patient Tobacco Use Status: Former Tobacco user Tobacco use type: Cigarette Years Smoked: 40 e-Cigarette/Vaping Use: Former Use Current occupational status: retired Cognitive needs: No Hearing needs: No Vision needs: Yes Physical Exam Const Other: Well-nourished well-developed very friendly female awake alert and oriented x3 in no acute distress Extrem Other: Bilateral lower extremity examination shows good capillary refill, no skin lesions noted, normal sensation light touch Right hip examination shows slightly decreased range of motion when compared to her left hip, pain with range of motion, tenderness over her bursa, no overlying skin lesions Office Procedures Joint Injection/Aspiration Joint Injection/Aspiration Primary Site: other (Right hip greater trochanteric bursa) Injected: 40 mg of, DepoMedrol and 1% plain lidocaine Procedure: The patient tolerated the procedure well Coding 79516 - Large joint Procedure code (CPT) selection complete Results Reviewed Results Reviewed: X-rays of the patient's right hip taken previously show joint space narrowing, subchondral sclerosis, no acute bony abnormalities Assessment & Plan Assessment & Plan (1) Trochanteric bursitis, right hip: Code(s): M70.61 - Trochanteric bursitis, right hip Category: Medical (2) Pain of right hip: Code(s): M25.551 - Pain in right hip Plan Ms. Shrestha presents with right hip pain due to greater trochanteric bursitis as well as degenerative joint disease. I had a lengthy discussion with the patient regarding the treatment options. She wishes to hold off on right total hip replacement surgery for as long as possible. I agree with this plan. The risks and benefits of a right hip greater trochanteric bursa cortisone injection were discussed at length with the patient. The patient wished to proceed. She tolerated the injection well. She will continue with her home exercise program. She will follow up with me on an as-needed basis should her symptoms not plateau at an unacceptable level over the next few months. Feel free to call me at any time should questions regarding her orthopedic management arise. I spent 20 minutes in reviewing the patient's records and imaging studies, seeing the patient and documenting in the medical record. Orders: Orders XR hip LT min 2V Today M25.552 - Pain in left hip AMB Joint Injection/Aspiration Today M70.61 - Trochanteric bursitis, right hip Coding Level of Care Code Est Pt Level 3 (47550) Diagnoses Trochanteric bursitis, right hip M70.61 Pain of right hip M25.551 CPT Codes Coding - 08414 Large joint: 69015 - Large joint ([id number])
== END 2024-04-11 09:55 | disposition home or self-care (01) ==
PROVIDERS: PCP Internal Medicine; Visit Provider Orthopaedic Surgery
DX: M70.61 Trochanteric bursitis, right hip (principal); M25.551 Pain in right hip
CPT/HCPCS: 20610; 99213

== ENCOUNTER 2024-04-11 13:16 | Outpatient (REF) | payer MEDICARE, BC, SELFPAY ==
--- NOTE | ~2024-04-11 | XR_ITS ---
EXAMINATION: XR HIP, LEFT CLINICAL INFORMATION: Left hip pain. COMPARISON: 01/10/2024 TECHNIQUE: AP view of the pelvis and a frog-leg lateral view of the left hip. FINDINGS: Prosthetic components of a left total hip arthroplasty appear appropriately situated, unchanged as compared to prior. There is a cerclage wire in the subtrochanteric region which appears unchanged. Thin rim of lucency around the proximal, posterior portion of the femoral stem measures less than 2 mm in thickness and likely corresponds to fibrous incorporation. No appreciable findings of osteolysis. Bones are osteopenic. [id number] osteoarthritis in the right hip joint, mild osteoarthritis in the SI joints. Fusion hardware is present in the lower lumbar spine. Atherosclerotic calcifications in the iliac and femoral arteries. XR/XR hip LT min 2V IMPRESSION: 1. No acute osseous findings at the left hip. Left total hip arthroplasty appears unchanged. 2. [id number] osteoarthritis in the right hip. Electronically signed by: Robin Ledbetter MD 05/04/2024 11:39 AM EDT
== END 2024-04-11 13:17 | disposition home or self-care (01) ==
LOC: HO.HOSX 13:16
PROVIDERS: Visit Provider Orthopaedic Surgery
DX: M25.552 Pain in left hip (principal); M70.61 Trochanteric bursitis, right hip
CPT/HCPCS: 20610; 73502; 99212; J1010

== ENCOUNTER 2024-07-17 09:40 | Outpatient (AMB) | payer MEDICARE, BC, SELFPAY ==
--- NOTE | 2024-07-17 09:41 | MHC.OFFVIS ---
Vital Signs 07/17/24 09:43 Height 5 ft 5.5 in Weight 170 lb BMI 27.9 Intake Visit Reasons: Right hip pain Intake Note: Jane is a 73 year old female who presents with complaints of progressively worsening pain along the lateral aspect of her right hip. The patient did undergo left total hip replacement surgery on 09/12/2023. She reports minimal discomfort in her left hip. She has had cortisone injections given into her right hip bursa in the past. She has gotten fairly good relief from those. She wishes to hold off on surgery for as long as possible. She has tried Tylenol in Celebrex which gave her mild relief. Allergies Penicillins Allergy (Intermediate, Verified 07/17/24 09:43) Rash Medication List - Last Reconciled 07/17/24 by Gregory Martinez MD acetaminophen (Tylenol Extra Strength) 500 mg PO Q6H PRN atorvastatin 40 mg PO BEDTIME celecoxib (Celebrex) 200 mg PO DAILY PRN cholecalciferol (vitamin D3) 25 mcg PO QAM clindamycin HCl 300 mg PO ONCE metoprolol succinate ER 100 mg PO BEDTIME omega-3 fatty acids (Fish Oil Concentrate) 1,000 mg PO QAM walker Folding front wheeled walker [facility] Medical History (Updated 04/11/24 @ 09:56 by Gregory Martinez MD) Arthritis of left hip (09/12/23) Arthritis Sinus tachycardia Spinal stenosis Claudication Elevated LFTs Knee pain, left Mammogram normal COPD (chronic obstructive pulmonary disease) HTN (hypertension) Osteoarthritis of knees, bilateral Ex-smoker for more than 1 year Hyperlipidemia Surgical History (Updated 01/10/24 @ 09:03 by Vilma Zurita CMA) History of left hip replacement H/O colonoscopy Hx of appendectomy Hx of lumbar discectomy Hx of cervical discectomy H/O knee surgery Family History Mother Diabetes Fibromyalgia Father Abnormal cardiovascular function Brother Substance use disorder Social History Household Members: Other Household Members Other:: son Housing: House Are you a primary healthcare business analyst to a significant other at home: No Do you presently have visiting nurse or other home services: No Alcohol intake: current Alcohol intake frequency: a few times a week Patient Tobacco Use Status: Former Tobacco user Tobacco use type: Cigarette Years Smoked: 40 e-Cigarette/Vaping Use: Former Use Current occupational status: retired Cognitive needs: No Hearing needs: No Vision needs: Yes Physical Exam Vital Signs: BMI result Body Mass Index 27.9 Const Other: Well-nourished well-developed very friendly female awake alert and oriented x3 in no acute distress Extrem Other: Bilateral lower extremity examination shows good capillary refill, no skin lesions noted, normal sensation light touch Right hip examination shows slightly decreased range of motion when compared to her left hip, tenderness over her bursa, no overlying skin lesions Office Procedures AMB Joint Injection/Aspiration Joint Injection/Aspiration Primary Site: other (Right hip greater trochanteric bursa) Prep: site was prepped using aseptic technique Injected: 40 mg of, DepoMedrol and 1% plain lidocaine Procedure: The patient tolerated the procedure well Coding - Large joint Procedure code (CPT) selection complete Assessment & Plan Assessment & Plan (1) Trochanteric bursitis, right hip: Code(s): M70.61 - Trochanteric bursitis, right hip Category: Medical (2) Pain of right hip: Code(s): M25.551 - Pain in right hip Plan Jane presents with right hip pain due to greater trochanteric bursitis as well as degenerative joint disease. I had a lengthy discussion with the patient regarding the treatment options. The risks and benefits of a right hip greater trochanteric bursa cortisone injection were discussed at length with the patient. The patient wished to proceed. She tolerated the injection well. She will continue with her home exercise program. She will contact me prior to her follow-up appointment in 3 months should any questions or concerns arise. Feel free to call me at any time should questions regarding her orthopedic management arise. I spent 21 minutes in reviewing the patient's records and imaging studies, seeing the patient and documenting in the medical record. Orders: Orders AMB Joint Injection/Aspiration Today M70.61 - Trochanteric bursitis, right hip Medications: New celecoxib (Celebrex) 200 mg PO DAILY PRN 30 caps 3RF pain Coding Level of Care Code Est Pt Level 3 (99065) Complex EM visit Add On G2211 Diagnoses Trochanteric bursitis, right hip M70.61 Pain of right hip M25.551 CPT Codes Coding - Large joint: 19418 - Large joint ([id number])
[2024-07-17 09:43] VITALS: BMI 27.9
== END 2024-07-17 10:04 | disposition home or self-care (01) ==
PROVIDERS: PCP Internal Medicine; Visit Provider Orthopaedic Surgery
DX: M70.61 Trochanteric bursitis, right hip (principal)
CPT/HCPCS: 20610; 99213

== ENCOUNTER → 2024-07-17 09:40 | Outpatient (BNVA) | payer MEDICARE, BC, SELFPAY | PROVIDERS: PCP Internal Medicine; Visit Provider Orthopaedic Surgery | DX: M70.61 Trochanteric bursitis, right hip (principal); M16.11 Unilateral primary osteoarthritis, right hip; Z96.642 Presence of left artificial hip joint | CPT/HCPCS: 20610; 99212; J1010; J2003 ==

== ENCOUNTER 2024-08-07 09:01 | Outpatient (REF) | payer MEDICARE, BC, SELFPAY ==
[2024-08-07 13:16] LABS: MANUAL DIFF FLAG NO
[2024-08-07 13:21] LABS: Basophils Absolute Auto 0.1 X10*3/uL (0.0-0.2); Basophils Percent Auto 0.7 % (0-2); Eosinophils Absolute Auto 0.2 X10*3/uL (0.0-0.4); Eosinophils Percent Auto 3.3 % (0-4); Hematocrit 44.4 % (37.0-47.0); Hemoglobin 14.9 g/dl (12.0-16.0); Imm Gran Abs Auto 0.02 X10*3/uL (0.00-0.03); Imm Gran Pct Auto 0.3 % (0.0-0.4); Lymphocytes Absolute Auto 2.3 X10*3/uL (1.2-4.9); Mean Corpuscular HGB Conc 33.6 g/dl (31.0-35.0); Mean Corpuscular Hemoglobin 31.8 pg (27.0-33.0); Mean Corpuscular Volume 94.9 fL (80.0-98.0); Mean Platelet Volume 11.4 fL (9.4-12.3); Monocytes Absolute Auto 0.7 X10*3/uL (0.1-1.2); Monocytes Percent Auto 10.2 % (2-11); Neutrophils Absolute Auto 3.7 x10*3/uL (2.0-8.3); Neutrophils Percent Auto 52.5 % (45-73); Platelet Count 201 X10*3/uL (160-400); Red Blood Count 4.68 X10*6/uL (4.20-5.50)
[2024-08-07 13:36] LABS: Estimated Average Glucose 123 mg/dL; Hemoglobin A1C 154.3074 umol/L; Hemoglobin A1c % 5.9 % (<6.0); Total Hemoglobin (HGBA1C) 3777.7748 umol/L
[2024-08-07 13:55] LABS: Alanine Aminotransferase 48 U/L (0-31); Albumin Level 4.6 g/dL (3.5-5.0); Alkaline Phosphatase 93 U/L (39-117); Anion Gap 11 (12-20); Aspartate Amino Transferase 31 U/L (5-31); Bilirubin Total 0.5 mg/dL (0.0-1.0); Blood Urea Nitrogen 18 mg/dL (9-16); Calcium 9.9 mg/dL (8.4-10.2); Carbon Dioxide 29 mmol/L (22-29); Chloride 104 mmol/L (96-108); Cholesterol 175 mg/dL (<200); Estimated Glomerular Filt Rate > 60; Glucose Fasting 106 mg/dL (60-99); HDL Cholesterol 56 mg/dL (>40); LDL Cholesterol Calculated 91 mg/dL (<100); Potassium 5.1 mmol/L (3.3-5.1); Sodium 139 mmol/L (135-145); Total Protein 7.7 g/dL (6.5-8.0); Triglycerides 140 mg/dL (<150); Vitamin D 25-OH Total 46.8 ng/mL (>30)
== END 2024-08-07 09:02 | disposition home or self-care (01) ==
LOC: HO.HMGCLDS 09:01
PROVIDERS: PCP Internal Medicine; Visit Provider Internal Medicine
DX: Z00.00 Encounter for general adult medical examination without abnormal findings (principal); M16.11 Unilateral primary osteoarthritis, right hip; M70.61 Trochanteric bursitis, right hip; I73.9 Peripheral vascular disease, unspecified; Z86.0102 Personal history of hyperplastic colon polyps; Z87.891 Personal history of nicotine dependence; Z13.1 Encounter for screening for diabetes mellitus
CPT/HCPCS: 36415; 80053; 80061; 82306; 83036; 85025; 96127

== ENCOUNTER 2024-08-07 09:01 | Outpatient (AMB) | payer MEDICARE, BC, SELFPAY ==
[2024-08-07 09:02] VITALS: BP 128/70; PULSE 66; O2SAT 96; BMI 28.3
--- NOTE | 2024-08-07 09:02 | A.OFFVIS_ITS ---
Intake Vital Signs 08/07/24 09:02 Height 5 ft 5.5 in Weight 173 lb BMI 28.3 BP 128/70 Blood Pressure Location Lt brachial Position Sitting Pulse 66 Pulse Source Pulse Oximeter Pulse Oximetry (%) 96 Oxygen Delivery Method Room Air Intake Visit Reasons: SWV G0439 Allergies Penicillins Allergy (Intermediate, Verified 07/17/24 09:43) Rash Medication List - Last Reconciled 08/07/24 by Qing Aguilar MD acetaminophen (Tylenol Extra Strength) 500 mg PO Q6H PRN atorvastatin 40 mg PO BEDTIME celecoxib (Celebrex) 200 mg PO DAILY PRN cholecalciferol (vitamin D3) 25 mcg PO QAM clindamycin HCl 300 mg PO ONCE metoprolol succinate ER 100 mg PO BEDTIME omega-3 fatty acids (Fish Oil Concentrate) 1,000 mg PO QAM walker Folding front wheeled walker HPI [facility] G0439 HPI Details PATIENT PRESENTS FOR ANNUAL VISIT. She complains of progressively worsening right hip pain and stiffness for the last few months. Patient recovered from left hip arthroplasty done in August but noticed worsening of the right hip pain after starting be more physically active. She follows up with the orthopedic surgeon and had cortisone injections with temporary relief. she had x-ray consistent with moderate to severe osteoarthritis of right hip and patient is contemplating right hip arthroplasty. Initiated the conversation about Advanced Directives. Advanced Directives help? patients prepare for current and future decisions about their medical treatment? and place of care. Discussed with patient that it is a process where a patients? current condition and prognosis are reviewed, their wishes for information? regarding their illness are elicited, and likely medical dilemmas are presented? and options discussed. The form can be amended as needed, reviewed yearly and? make changes as needed IPPE/AWV ? year old presents? for her ? Annual? Wellness Visit, initial visit.? Medical / Social History Reviewed? Past Medical History ?Yes? . ? [place]? of Care / Care Team list updated ?Yes . ? Surgical/Hospitalization? History ?Yes . ? Current Medications? (including OTC and supplements) ?Yes . ? Family History ?Yes? . ? Tobacco? Control form ?Yes . ? AUDIT-C (Alcohol use) form? ?Yes . ? Illicit drug use in Social? History ?Yes . ? Current diagnosis of? depression? ?No ? Appropriate PHQ2/PHQ9? completed ?Yes . ? Data entered by ?Medical? Medical Lab Technologist and reviewed by provider ? Fall Risk ? Fall? History? Have you had any falls with? injury in the past year? ?No . ? Have you had two or more? falls in the past year? ?No . ? Fall Risk Assessment: ?No? falls in the past year . ? HRA filled out by? the patient, reviewed by Provider and scanned. ? IPPE/AWV ? Balance? [place]? ?Yes . ? Tandem? walk ?Yes . ? Walk and? Turn ?Yes . ? Rise from? sit to stand ?Yes . ?Vision? Corrective? lens ?Yes ? Vision? screen ? Up-to-date, has an appointment [] for vision? screening and glaucoma screening ?Hearing? Whisper? test ?pass .? Initiated the conversation about Advanced Directives. Advanced Directives help? patients prepare for current and future decisions about their medical treatment? and place of care. Discussed with patient that it is a process where a patients? current condition and prognosis are reviewed, their wishes for information? regarding their illness are elicited, and likely medical dilemmas are presented? and options discussed. The form can be amended as needed, reviewed yearly and? make changes as needed Written? Plan?Completed. See Patient? Documents. [facility] Medical History (Updated 08/07/24 @ 09:36 by Qing Aguilar MD) Arthritis of left hip (09/12/23) Arthritis Sinus tachycardia Spinal stenosis Claudication Elevated LFTs Knee pain, left Mammogram normal HTN (hypertension) Osteoarthritis of knees, bilateral Hyperlipidemia Surgical History (Updated 08/07/24 @ 09:52 by Qing Aguilar MD) History of left hip replacement H/O colonoscopy Hx of appendectomy Hx of lumbar discectomy Hx of cervical discectomy H/O knee surgery Family History Mother Diabetes Fibromyalgia Father Abnormal cardiovascular function Brother Substance use disorder Social History Household Members: Other Household Members Other:: son Housing: House Are you a primary care transition coordinator to a significant other at home: No Do you presently have visiting nurse or other home services: No Alcohol intake: current Alcohol intake frequency: a few times a week Patient Tobacco Use Status: Former Tobacco user Tobacco use type: Cigarette Years Smoked: 40 e-Cigarette/Vaping Use: Former Use Current occupational status: retired Cognitive needs: No Hearing needs: No Vision needs: Yes Questionnaire Medicare Wellness Checkup [age] What gender do you identify with?: female During the past 4 weeks, how much have you been bothered by emotional problems such as feeling anxious, depressed, irritable, sad or downhearted, and blue?: slightly During the past 4 weeks, has your physical & emotional health limited your social activities with family, friends, neighbors, or groups?: not at all During the past 4 weeks, how much bodily pain have you generally had?: moderate pain During the past 4 weeks, was someone available to help you if you needed & wanted help?: yes, as much as I wanted During the past 4 weeks, what was the hardest physical activity you could do for at least 2 minutes?: very light Can you get to places out of walking distance without help? (For eg., can you travel alone on buses, taxis or drive your car?): Yes Can you go shopping for groceries or clothes without someone's help?: Yes Can you prepare your own meals?: Yes Can you do your housework without help?: No Because of any health problems, do you need the help of another person with your personal care needs such as eating, bathing, dressing or getting around the house?: Yes Can you handle your own money without help?: Yes During the past 4 weeks, how would you rate your health in general?: good During the past 4 weeks how have things been going for you?: good & bad parts about equal Are you having difficulties driving your car?: no Do you always fasten your seat belt when you are in a car?: yes, usually During past 4 weeks, have you been bothered by the following: never: Falling or dizzy when standing up, Sexual problems?, Trouble eating well?, Teeth or denture problems? and Problems using the telephone? and sometimes: Tiredness or fatigue? Have you fallen 2 or more times in the past year?: No Are you afraid of falling?: Yes Are you a smoker?: no During the past 4 weeks, how many drinks of wine, beer, or other alcoholic beverages did you have?: 1 drink or less per week Do you exercise for about 20 minutes 3 or more times a week?: no, I usually do not exercise this much Have you been given information to help with the following?: no: Hazards in your house that might hurt you? and no: Keeping track of your medications? How often do you have trouble taking medicines the way you have been told to take them?: I always take medicine as prescribed How confident are you that you can control & manage most of your health problems?: somewhat confident What is your race?: White Mini Mental State Exam (MMSE) Orientation What is the (year) (season) (date) (day) (month)?: year, season, date, day and month Where are we (state) (county) (town or city) (hospital) (floor)?: state, county, town or city, hospital/clinic and floor Registration Name of 3 unrelated objects clearly and slowly, then ask patient to repeat all 3 of them. (1st repeat determines score. Make sure they can repeat all three): object 1, object 2 and object 3 Attention & Calculation (CHOOSE ONE) Spell WORLD backwards (DLROW): 5 letters Recall Ask patient to repeat the 3 items from question #3.: object 1, object 2 and object 3 Language Show patient a wristwatch & ask what it is. Repeat for pencil.: watch and pencil Ask the patient to repeat the phrase 'No ifs, ands, or buts' after you.: correct Ask the patient to 'take a piece of paper with their right hand' 'fold paper in half' 'place paper on floor': take paper in right hand, fold paper in half and place paper on floor Print the sentence 'CLOSE YOUR EYES' on a piece. If patient actually closes eyes then score.: followed written direction Give patient a blank piece of paper & ask to write a sentence. Score if it contains a noun & verb.: sentence contains subject and verb Score Score: 29 PHQ-9 Over the last 2 weeks, how often have you been bothered by any of the following problems? 1. Little interest or pleasure in doing things: not at all 2. Feeling down, depressed, or hopeless: not at all 3. Trouble falling or staying asleep, or sleeping too much: nearly every day 4. Feeling tired or having little energy: several days 5. Poor appetite or overeating: several days 6. Feeling bad about yourself - or that you are a failure or have let yourself or your family down: not at all 7. Trouble concentrating on things, such as reading the newspaper or watching television: not at all 8. Moving or speaking so slowly that other people could have noticed. Or the opposite - being so fidgety or restless that you have been moving around a lot more than usual: not at all 9. Thoughts that you would be better off or of hurting yourself in some way: not at all Total score: 5 Depression Screening Interpretation: Negative Depression Screening Done: Yes 52161 - PHQ-9 Billing: Yes Source: Developed by Drs. Simon Abel, Thelma Gould, Rajat Todd and colleagues, with an educational juliano from [employer]. Review of Systems Const All systems reviewed & are unremarkable except as noted in HPI and below Reports no additional complaints Eyes Reports no additional complaints ENT Reports no additional complaints Card Reports no additional complaints Resp Reports no additional complaints GI Reports no additional complaints Reports no additional complaints Musc Reports no additional complaints Physical Exam Vital Signs: Last Vital Signs Pulse 66 08/07/24 09:02 BP 128/70 08/07/24 09:02 Pulse Ox 96 08/07/24 09:02 Oxygen Delivery Method Room Air 08/07/24 09:02 BMI result Body Mass Index 28.3 Const General: no acute distress HEENT Head: Yes normal to inspection Ears: hearing grossly normal bilaterally Eyes General: appearance normal, both eyes and all related structures Neck Neck: Yes no lymphadenopathy and Yes supple Resp Effort & Inspection: normal respiratory effort Auscultation: clear to auscultation bilaterally Cardio Rhythm: regular rhythm Heart sounds: S1 normal heart sound present and S2 normal heart sound present GI Inspection: Yes normal to inspection Palpation (GI): Soft to palpation Percussion: Yes normal to percussion Auscultation: normal bowel sounds Extrem General: Yes no clubbing, cyanosis or edema Assessment & Plan Assessment & Plan (1) Arthritis of right hip: Code(s): M16.11 - Unilateral primary osteoarthritis, right hip Plan: Follow-up with ortho (2) H/O colonoscopy: Comment: Dr. Becker 1 hyperplastic polyp 11/2022, hx of polyps . repeat 5 yrs Code(s): Z98.890 - Other specified postprocedural states Plan: Follow-up with GI (3) Ex-smoker: Comment: 1 ppd x >20 yrs, quit 2019, had [facility]3yrs, referred to Lung ca [place] [facility] [place] Code(s): Z87.891 - Personal history of nicotine dependence Plan: Referred to lung cancer screening (4) Annual physical exam: Code(s): Z00.00 - Encounter for general adult medical examination without abnormal findings Plan: Well-balanced diet increase physical activity discussed with the patient. She will have a fasting blood work today. Patient will continue atorvastatin and metoprolol Orders: Orders Complete Blood Count Auto Diff Today I73.9 - Peripheral vascular disease, unspecified, M16.11 - Unilateral primary osteoarthritis, right hip, M70.61 - Trochanteric bursitis, right hip Vitamin D 25-OH Total Today I73.9 - Peripheral vascular disease, unspecified, M16.11 - Unilateral primary osteoarthritis, right hip, M70.61 - Trochanteric bursitis, right hip Comprehensive [place]. Panel Fast Today I73.9 - Peripheral vascular disease, unspecified, M16.11 - Unilateral primary osteoarthritis, right hip, M70.61 - Trochanteric bursitis, right hip Lipid Panel Today I73.9 - Peripheral vascular disease, unspecified, M16.11 - Unilateral primary osteoarthritis, right hip, M70.61 - Trochanteric bursitis, right hip Hemoglobin A1c Today I73.9 - Peripheral vascular disease, unspecified, M16.11 - Unilateral primary osteoarthritis, right hip, M70.61 - Trochanteric bursitis, right hip Referrals Thoracic/General Surgery Referral Z87.891 - Personal history of nicotine [facility] (2020) Depression/Bipolar (159/160/161/177) PHQ-9: Total score: 5 Coding Level of Care Code Medicare Subsequent (G0439) Diagnoses Arthritis of right hip M16.11 H/O colonoscopy Z98.890 Ex-smoker Z87.891 Annual physical exam Z00.00 CPT Codes Advance Care Planning - Advance Care Planning discussion: On file, no changes ([id number]) Advance Care Planning - Time spent: 1-15 minutes, on File ([id number]) Additional Codes PHQ-9 - 92417 - PHQ-9 Billing: Yes ([id number]) Advance Care Planning Advance Care Planning discussion: On file, no changes Forms completed: Health Care Proxy Time spent: 1-15 minutes, on File Did not discuss due to Cultural/Spiritual beliefs: Yes
== END 2024-08-07 09:46 | disposition home or self-care (01) ==
PROVIDERS: PCP Internal Medicine; Visit Provider Internal Medicine
DX: Z00.00 Encounter for general adult medical examination without abnormal findings (principal); M16.11 Unilateral primary osteoarthritis, right hip; Z98.890 Other specified postprocedural states; Z87.891 Personal history of nicotine dependence

== ENCOUNTER 2024-10-17 09:31 | Outpatient (AMB) | payer MEDICARE, BC, SELFPAY ==
--- NOTE | 2024-10-17 09:40 | MHC.OFFVIS ---
Intake Visit Reasons: Right hip pain Intake Note: Jane is a 74 year old female who presents with complaints of pain in her right hip. She describes her pain as sharp in nature. Most of the pain is along the lateral and anterior aspects of her hip. She has had cortisone injections given into her right hip bursa which gave her fairly good relief. She wishes to hold off on surgery if at all possible. She has tried Tylenol and Celebrex which gave her mild relief. Allergies Penicillins Allergy (Intermediate, Verified 10/17/24 09:44) Rash Medication List - Last Reviewed 10/17/24 by NEENA Whiting acetaminophen (Tylenol Extra Strength) 500 mg PO Q6H PRN atorvastatin 40 mg PO BEDTIME celecoxib (Celebrex) 200 mg PO DAILY PRN cholecalciferol (vitamin D3) 25 mcg PO QAM clindamycin HCl 300 mg PO ONCE clindamycin HCl 600 mg (2 x 300 mg) PO ONCE metoprolol succinate ER 100 mg PO BEDTIME omega-3 fatty acids (Fish Oil Concentrate) 1,000 mg PO QAM walker Folding front wheeled walker [facility] Medical History (Updated 09/20/24 @ 15:40 by Haily Diez PA-C) Osteopenia Personal history of nicotine dependence Arthritis of left hip (09/12/23) Arthritis Sinus tachycardia Spinal stenosis Claudication Elevated LFTs Knee pain, left Mammogram normal HTN (hypertension) Osteoarthritis of knees, bilateral Hyperlipidemia Surgical History (Updated 09/20/24 @ 15:39 by Haily Diez PA-C) History of lumbar discectomy History of cervical discectomy History of right knee surgery History of colonoscopy History of appendectomy History of left hip replacement Family History Mother Diabetes Fibromyalgia Father Abnormal cardiovascular function Brother Substance use disorder Social History Household Members: Other Household Members Other:: son Housing: House Are you a primary long term acute care registered nurse to a significant other at home: No Do you presently have visiting nurse or other home services: No Alcohol intake: current Alcohol intake frequency: a few times a week Patient Tobacco Use Status: Former Tobacco user Tobacco use type: Cigarette Years Smoked: 40 e-Cigarette/Vaping Use: Former Use Current occupational status: retired Cognitive needs: No Hearing needs: No Vision needs: Yes Physical Exam Const Other: Well-nourished well-developed very friendly female awake alert and oriented x3 in no acute distress Extrem Other: Right hip examination shows decreased range of motion when compared to her left hip, mild to moderate pain with range of motion, tenderness over her bursa Office Procedures AMB Joint Injection/Aspiration Joint Injection/Aspiration Primary Site: other (Right hip greater trochanteric bursa) Prep: site was prepped using aseptic technique Injected: 40 mg of, DepoMedrol and 1% plain lidocaine Procedure: The patient tolerated the procedure well Coding - Large joint Procedure code (CPT) selection complete Assessment & Plan Assessment & Plan (1) Trochanteric bursitis, right hip: Code(s): M70.61 - Trochanteric bursitis, right hip Category: Medical (2) Pain of right hip: Code(s): M25.551 - Pain in right hip Plan Ms. Shrestha presents with right hip pain due to degenerative joint disease as well as greater trochanteric bursitis. The risks and benefits of a right hip bursa cortisone injection were discussed at length with the patient. The patient wished to proceed. She tolerated the injection well. She will continue with her home exercise program. She will contact me prior to her follow-up appointment in 3 months should any questions or concerns arise. Feel free to call me at any time should questions regarding her orthopedic management arise. I spent 20 minutes in reviewing the patient's records and imaging studies, seeing the patient and documenting in the medical record. Orders: Orders AMB Joint Injection/Aspiration 10/17/24 M70.61 - Trochanteric bursitis, right hip Coding Level of Care Code Est Pt Level 3 (40067) Complex EM visit Add On G2211 Diagnoses Trochanteric bursitis, right hip M70.61 Pain of right hip M25.551 CPT Codes Coding - Large joint: 14125 - Large joint ([id number])
== END 2024-10-17 10:07 | disposition home or self-care (01) ==
PROVIDERS: PCP Internal Medicine; Visit Provider Orthopaedic Surgery
DX: M70.61 Trochanteric bursitis, right hip (principal); M25.551 Pain in right hip
CPT/HCPCS: 20610; 99213

== ENCOUNTER → 2024-10-17 09:31 | Outpatient (BNVA) | payer MEDICARE, BC, SELFPAY | PROVIDERS: PCP Internal Medicine; Visit Provider Orthopaedic Surgery | DX: M70.61 Trochanteric bursitis, right hip (principal); M16.11 Unilateral primary osteoarthritis, right hip | CPT/HCPCS: 20610; 99212; J1010; J2003 ==

== ENCOUNTER 2024-10-19 09:47 | Outpatient (AMB) | payer MEDICARE, BC, SELFPAY ==
--- NOTE | 2024-10-19 07:50 | MHC.OFFVIS ---
Intake Visit Reasons: Former Smoker Allergies Penicillins Allergy (Intermediate, Verified 10/17/24 09:44) Rash HPI HPI Former Smoker: Details: Initial visit for this 74yo former smoker with a 50PYH. Patient started smoking at age 16 for 53 years at 1ppd. She quit 08/22/2019. . Denies marijuana use. Denies second hand smoke exposure. Denies exposure to chemicals or substances like asbestos. . Denies known family history of lung cancer. Denies personal history of cancers. . Denies chest CT in last year. Prior chest CT at [facility] - 06/26/18 stable multiple tiny nodules . Denies recent travel outside the [place]. Denies recent respiratory illness or recent hospitalization for respiratory issues. Denies testing positive for COVID. Admits receiving COVID Vaccine. . Denies fever, chills, new/worsening cough, hemoptysis, hoarseness or dysphagia. Denies significant chest pain, significant dyspnea or unintentional weight loss. Patient Lung Cancer Screening Questionnaire reviewed with patient by provider. . Shared Decision Making Completed. Patient meets criteria. Discussed in detail with patient, the risk vs benefit of LDCT screening. Patient consents to proceed with scan. Discussed and encouraged continued smoking cessation. [facility] Medical History (Updated 10/19/24 @ 09:53 by Haily Diez PA-C) Osteopenia Personal history of nicotine dependence Arthritis of left hip (09/12/23) Arthritis Sinus tachycardia Spinal stenosis Claudication Elevated LFTs Knee pain, left Mammogram normal HTN (hypertension) Osteoarthritis of knees, bilateral Hyperlipidemia Surgical History (Updated 09/20/24 @ 15:39 by Haily Diez PA-C) History of lumbar discectomy History of cervical discectomy History of right knee surgery History of colonoscopy History of appendectomy History of left hip replacement Family History Mother Diabetes Fibromyalgia Father Abnormal cardiovascular function Brother Substance use disorder Social History (Updated 10/19/24 @ 09:53 by Haily Diez PA-C) Household Members: Other Household Members Other:: son Housing: House Are you a primary customer care professional to a significant other at home: No Do you presently have visiting nurse or other home services: No Alcohol intake: current Alcohol intake frequency: a few times a week Patient Tobacco Use Status: Former Tobacco user Tobacco use type: Cigarette Years Smoked: (onset 16yo, 1ppd x 53yrs, 50pyh, quit 08/22/2019) e-Cigarette/Vaping Use: Former Use Current occupational status: retired Cognitive needs: No Hearing needs: No Vision needs: Yes Assessment & Plan Assessment & Plan (1) Personal history of nicotine dependence: Comment: (onset 16yo, 1ppd x 53yrs, 50pyh, quit 08/22/2019) Code(s): Z87.891 - Personal history of nicotine dependence Category: Medical Plan: - SDM visit completed today in office. - Patient meets criteria for LDCT for lung cancer screening purposes and is asymptomatic. - Smoking cessation counseling offered. Patients can always call [phone]. - Will arrange for a LDCT scan of the chest for screening purposes at [facility]. - Risks, benefits, and alternatives were discussed in detail and the patient agrees to proceed. - Risks discussed include but are not limited to: radiation exposure, anxiety during testing and while awaiting results, false negatives, false positives and possibility of additional intervention such as further imaging or surgical procedures for benign disease. - Benefits are obviously detection of lung cancer at an early stage which can lead to improved outcomes. - Discussed the importance of screening program compliance with adherence to yearly LDCT scan as scheduled - or sooner interval scans for personalized screening regimen. - Discussed follow up plan. Our office will send a letter discussing results and if needed set up phone call and office visit based on CT findings. - Patient educated on results categorization and the management decisions for suspicious findings potentially found on the screening LDCT scan. Any patient with a Lung RADS score of 3 or 4 will be reviewed by a multidisciplinary team at [facility] to form a plan of action in regards to scan findings. - If further work up is warranted for a suspicious lung finding this will be followed by the Lung Cancer Screening program in conjunction with the Thoracic Surgery Department at [facility]. - A copy of the office note and LDCT will be sent to the patient's PCP - as well as documentation on any associated further plans of care. - Incidental findings on LDCT are the PCP's responsibility. These findings are indicated with an S finding on the LDCT Assessment. A note discussing the findings will be sent to the PCP who is then responsible for further management. - All questions answered.? Coding Level of Care Code Lung Cancer Screening G0296 Diagnoses Personal history of nicotine dependence Z87.891
== END 2024-10-19 10:41 | disposition home or self-care (01) ==
PROVIDERS: PCP Internal Medicine; Visit Provider Physician Assistant Medical
DX: Z87.891 Personal history of nicotine dependence (principal)
CPT/HCPCS: G0296

== ENCOUNTER 2024-10-19 10:02 | Outpatient (REF) | payer MEDICARE, BC, SELFPAY ==
--- NOTE | ~2024-10-19 | CT_ITS ---
CLINICAL HISTORY: Z87.891 - Personal history of nicotine dependence CT lung cancer screening (LDCT) Comparison: None Technique: Axial CT images of the chest using low-dose technique. Referring provider counseled the patient on shared decision-making for LDCT screening. Additional counseling was provided on smoking cessation. Effective radiation dose total: DLP 45.8 mGycm, CTDIvol 1.4 mGy. Findings: Pulmonary nodules: 6 mm part solid part ground-glass left upper lobe nodule, axial 24. 4 mm right middle lobe nodule, axial 78. Additional faint scattered 2 mm nodules are noted. Incidental pulmonary findings: Calcified granuloma, left upper lobe on axial image 55. Mild centrilobular emphysema. Mild airway thickening. Non pulmonary findings: Coronary artery calcifications: Moderate Limited upper abdomen: Gallstones are noted Other: None Impression: LungRADS 3 - Probably benign: Recommend low dose screening Chest CT in 6 months. ##L3# Category 1: Normal; continue annual screening Category 2: Benign appearance or behavior, continue annual screening Category 3: Probably benign, [address] recommended Category 4A: Suspicious, [address] recommended; may consider PET/CT Category 4B: Suspicious, Additional diagnostics and/or tissue sampling recommended Category 4X: Suspicious, Additional diagnostics and/or tissue sampling recommended Category 0: Recalls (incomplete screen due to Incomplete coverage, Noise, Respiratory motion, Expiration, Obscured by acute abnormality) This document has been electronically signed by: Humza Neely MD on 10/19/2024 12:58:09
== END 2024-10-19 10:03 | disposition home or self-care (01) ==
LOC: HO.CT 10:02
PROVIDERS: PCP Internal Medicine; Visit Provider Physician Assistant Medical
DX: Z12.2 Encounter for screening for malignant neoplasm of respiratory organs (principal); Z87.891 Personal history of nicotine dependence
CPT/HCPCS: 71271; G0296

== ENCOUNTER → 2024-10-19 10:04 | Outpatient (BNV) | payer MEDICARE, BC, SELFPAY | PROVIDERS: PCP Internal Medicine; Visit Provider Radiology Vascular & Interventional Radiology | DX: Z87.891 Personal history of nicotine dependence (principal) | CPT/HCPCS: 71271 ==

== ENCOUNTER 2025-01-15 07:40 | Outpatient (REF) | payer MEDICARE, BC, SELFPAY ==
--- NOTE | ~2025-01-15 | XR_ITS ---
CLINICAL HISTORY: M25.551 - Pain in right hip --- Additional Notes or Special Instructions: AP pelvis view only AP pelvis Comparison: 04/11/2024 Findings: No fractures or dislocations. Left hip arthroplasty is in good alignment with no displacement of hardware. There is advanced degenerative narrowing of the right femoroacetabular joint with [id number] approximation and mild axial migration of the femoral head. Pubic bones are unremarkable. There is lumbar spine ORIF and posterior decompression, partially visualized. No radiopaque foreign body. 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 This document has been electronically signed by: Miguelito Thompson MD on 01/15/2025 15:17:47
== END 2025-01-15 07:41 | disposition home or self-care (01) ==
LOC: HO.HOSX 07:40
PROVIDERS: Visit Provider Orthopaedic Surgery
DX: M25.551 Pain in right hip (principal); M25.552 Pain in left hip; M70.61 Trochanteric bursitis, right hip
CPT/HCPCS: 20610; 72170; 99212; J1010; J2003

== ENCOUNTER 2025-01-15 09:51 | Outpatient (AMB) | payer MEDICARE, BC, SELFPAY ==
--- NOTE | 2025-01-15 09:59 | MHC.OFFVIS ---
Vital Signs 01/15/25 10:02 Height 5 ft 5.5 in Weight 173 lb BMI 28.3 Intake Visit Reasons: OV f/u right hip last rt hip inj 10/17/2024 Intake Note: Jane is a 74 year old female who presents with complaints of intermittent pain along the lateral aspect of her right hip. She did undergo left total hip replacement surgery several years ago. She denies any pain in her left hip. She describes her right hip pain as achy in nature. She has tried Tylenol and Celebrex which gave her mild relief. She wishes to hold off on right total hip replacement surgery for as long as possible. Allergies Penicillins Allergy (Intermediate, Verified 01/15/25 10:02) Rash Medication List - Last Reconciled 01/15/25 by Gregory Martinez MD acetaminophen (Tylenol Extra Strength) 500 mg PO Q6H PRN atorvastatin 40 mg PO BEDTIME celecoxib (Celebrex) 200 mg PO DAILY PRN cholecalciferol (vitamin D3) 25 mcg PO QAM clindamycin HCl 300 mg PO ONCE clindamycin HCl 600 mg (2 x 300 mg) PO ONCE metoprolol succinate ER 100 mg PO BEDTIME omega-3 fatty acids (Fish Oil Concentrate) 1,000 mg PO QAM walker Folding front wheeled walker [facility] Medical History (Updated 01/15/25 @ 07:41 by Gregory Martinez MD) Osteopenia Personal history of nicotine dependence Arthritis of left hip (09/12/23) Arthritis Sinus tachycardia Spinal stenosis Claudication Elevated LFTs Knee pain, left Mammogram normal HTN (hypertension) Osteoarthritis of knees, bilateral Hyperlipidemia Surgical History (Updated 09/20/24 @ 15:39 by Haily Diez PA-C) History of lumbar discectomy History of cervical discectomy History of right knee surgery History of colonoscopy History of appendectomy History of left hip replacement Family History Mother Diabetes Fibromyalgia Father Abnormal cardiovascular function Brother Substance use disorder Social History (Updated 10/19/24 @ 09:53 by Haily Diez PA-C) Household Members: Other Household Members Other:: son Housing: House Are you a primary companion caregiver to a significant other at home: No Do you presently have visiting nurse or other home services: No Alcohol intake: current Alcohol intake frequency: a few times a week Patient Tobacco Use Status: Former Tobacco user Tobacco use type: Cigarette Years Smoked: (onset 16yo, 1ppd x 53yrs, 50pyh, quit 08/22/2019) e-Cigarette/Vaping Use: Former Use Current occupational status: retired Cognitive needs: No Hearing needs: No Vision needs: Yes Physical Exam Vital Signs: BMI result Body Mass Index 28.3 Const Other: Well-nourished well-developed very friendly female awake alert and oriented x3 in no acute distress Extrem Other: Right hip examination shows decreased range of motion when compared to her left hip, pain with range of motion, tenderness over her bursa, no overlying skin lesions Office Procedures AMB Joint Injection/Aspiration Joint Injection/Aspiration Primary Site: other (Right hip greater trochanteric bursa) Prep: site was prepped using aseptic technique Injected: 40 mg of, DepoMedrol and 1% plain lidocaine Procedure: The patient tolerated the procedure well Coding 17467 - Large joint Procedure code (CPT) selection complete Results Reviewed Results Reviewed: AP pelvis x-ray taken today shows right hip severe joint space narrowing, subchondral sclerosis, no acute bony abnormalities; left total hip arthroplasty in good position with no signs of loosening Assessment & Plan Assessment & Plan (1) Trochanteric bursitis, right hip: Code(s): M70.61 - Trochanteric bursitis, right hip Category: Medical Plan Ms. Shrestha presents with right hip pain due to degenerative joint disease as well as greater trochanteric bursitis. The risks and benefits of a right hip bursa cortisone injection were discussed at length with the patient. The patient wished to proceed. She tolerated the injection well. She will continue with her home exercise program. She will contact me prior to her follow-up appointment in 3 months should any questions or concerns arise. Feel free to call me at any time should questions regarding her orthopedic management arise. I spent 21 minutes in reviewing the patient's records and imaging studies, seeing the patient and documenting in the medical record. Orders: Orders XR pelvis 1-2V Today M25.551 - Pain in right hip, M25.552 - Pain in left hip AMB Joint Injection/Aspiration Today M70.61 - Trochanteric bursitis, right hip Coding Level of Care Code Est Pt Level 3 (91449) Complex EM visit Add On G2211 Diagnoses Trochanteric bursitis, right hip M70.61 CPT Codes Coding - 37672 Large joint: 93669 - Large joint ([id number])
[2025-01-15 10:02] VITALS: BMI 28.3
== END 2025-01-15 10:14 | disposition home or self-care (01) ==
LOC: HO.HOS 09:51
PROVIDERS: PCP Internal Medicine; Visit Provider Orthopaedic Surgery
DX: M70.61 Trochanteric bursitis, right hip (principal)
CPT/HCPCS: 20610; 99213

== ENCOUNTER → 2025-01-15 09:52 | Outpatient (BNV) | payer MEDICARE, BC, SELFPAY | PROVIDERS: Visit Provider Radiology Diagnostic Radiology | DX: M16.11 Unilateral primary osteoarthritis, right hip (principal) | CPT/HCPCS: 72170 ==

== ENCOUNTER 2025-01-29 10:47 | Outpatient (REF) | payer MEDICARE, BC, SELFPAY ==
--- NOTE | ~2025-01-29 | CT_ITS ---
EXAMINATION: CT LUNG SCREENING FOLLOW UP WITHOUT IV CONTRAST HISTORY: R91.1 - Solitary pulmonary nodule TECHNIQUE: Low dose axial images were obtained from the sternal notch to upper abdomen without IV contrast per standard departmental protocol. Sagittal and coronal reformatted images were also obtained and reviewed. One or more of the following techniques was used for dose reduction: Automated exposure control, adjustment of the mA and/or kV according to patient size, use of iterative reconstruction technique. DLP: 54 mGy-cm COMPARISON: Comparison is made with the prior examination dated 10/19/2024. FINDINGS: Lung nodules: Again seen is a punctate nodule in the right upper lobe (series 4, image 72). A 4 mm nodule in the right upper lobe (series 4, image 78) is stable. The previously seen 5 mm solid nodule at the left lung apex (series 4, image 30) is also stable. There is a 3 mm calcified granuloma in the left upper lobe (series 4, image 54) without change. No new pulmonary nodules are identified. Emphysema: mild Coronary Calcification: severe Aortic Arch Calcification: mild Potentially Significant Incidentals : none Additional Chest Findings: There is no pleural or pericardial effusion. No mediastinal or axillary lymphadenopathy is identified. Visualized upper abdomen: The visualized portions of the liver, spleen, and adrenals have an unremarkable unenhanced appearance. There is cholelithiasis. CT/CT lung screen follow up IMPRESSION: Stable bilateral subcentimeter pulmonary nodules as described. The patient may resume annual low-dose screen chest CT. LUNG-RADS ASSESSMENT: Lung-RADS 2: Benign MANAGEMENT: Continue annual screening with LDCT in 12 months Category S: N/A Electronically signed by: Simon Rubio MD 01/29/2025 03:31 PM EDT
== END 2025-01-29 10:48 | disposition home or self-care (01) ==
LOC: HO.CT 10:47
PROVIDERS: PCP Internal Medicine; Visit Provider Physician Assistant Medical
DX: R91.1 Solitary pulmonary nodule (principal); Z87.891 Personal history of nicotine dependence
CPT/HCPCS: 71250

== ENCOUNTER → 2025-01-29 10:49 | Outpatient (BNV) | payer MEDICARE, BC, SELFPAY | PROVIDERS: PCP Internal Medicine; Visit Provider Radiology Diagnostic Radiology | DX: R91.1 Solitary pulmonary nodule (principal) | CPT/HCPCS: 71250 ==

== ENCOUNTER 2025-04-17 08:17 | Outpatient (AMB) | payer MEDICARE, BC, SELFPAY ==
--- NOTE | 2025-04-17 08:31 | A.OFFVIS_ITS ---
Vital Signs 04/17/25 08:36 Height 5 ft 5 in Weight 170 lb BMI 28.3 Intake Visit Reasons: OV f/u right hip last rt hip inj 01/15/25 Intake Note: Jane is a 74 year old female who presents today for a follow up for her right hip, last right hip injection 01/15/25. Patient states the injection did give relief but is wearing off for the past week. Patient states that she is going on more walks at home. She has taken Celebrex and Tylenol which gave her mild relief. Allergies Penicillins Allergy (Intermediate, Verified 04/17/25 08:36) Rash Medication List - Last Reconciled 04/17/25 by Gregory Martinez MD acetaminophen (Tylenol Extra Strength) 500 mg PO Q6H PRN atorvastatin 40 mg PO BEDTIME celecoxib (Celebrex) 200 mg PO DAILY PRN cholecalciferol (vitamin D3) 25 mcg PO QAM clindamycin HCl 300 mg PO ONCE clindamycin HCl 600 mg (2 x 300 mg) PO ONCE metoprolol succinate ER 100 mg PO BEDTIME omega-3 fatty acids (Fish Oil Concentrate) 1,000 mg PO QAM walker Folding front wheeled walker [facility] Medical History (Updated 01/29/25 @ 15:38 by Haily Diez PA-C) Osteopenia Personal history of nicotine dependence Arthritis of left hip (09/12/23) Arthritis Sinus tachycardia Spinal stenosis Claudication Elevated LFTs Knee pain, left Mammogram normal HTN (hypertension) Osteoarthritis of knees, bilateral Hyperlipidemia Surgical History (Updated 09/20/24 @ 15:39 by Haily Diez PA-C) History of lumbar discectomy History of cervical discectomy History of right knee surgery History of colonoscopy History of appendectomy History of left hip replacement Family History Mother Diabetes Fibromyalgia Father Abnormal cardiovascular function Brother Substance use disorder Social History (Updated 10/19/24 @ 09:53 by Haily Diez PA-C) Household Members: Other Household Members Other:: son Housing: House Are you a primary ambulatory care nurse to a significant other at home: No Do you presently have visiting nurse or other home services: No Alcohol intake: current Alcohol intake frequency: a few times a week Patient Tobacco Use Status: Former Tobacco user Tobacco use type: Cigarette Years Smoked: (onset 16yo, 1ppd x 53yrs, 50pyh, quit 08/22/2019) e-Cigarette/Vaping Use: Former Use Current occupational status: retired Cognitive needs: No Hearing needs: No Vision needs: Yes Physical Exam Vital Signs: BMI result Body Mass Index 28.3 Const Other: Well-nourished well-developed very friendly female awake alert and oriented x3 in no acute distress Extrem Other: Right hip examination shows slightly decreased range of motion when compared to her left hip, tenderness over her bursa, no overlying skin lesions Office Procedures AMB Joint Injection/Aspiration Joint Injection/Aspiration Primary Site: other (Right hip greater trochanteric bursa) Prep: site was prepped using aseptic technique Injected: 40 mg of, DepoMedrol and 1% plain lidocaine Procedure: The patient tolerated the procedure well Coding 79112 - Large joint Procedure code (CPT) selection complete Assessment & Plan Assessment & Plan (1) Trochanteric bursitis, right hip: Code(s): M70.61 - Trochanteric bursitis, right hip Category: Medical Plan Ms. Shrestha presents with right hip pain due to greater trochanteric bursitis. The risks and benefits of a right hip cortisone injection were discussed at length with the patient. The patient wished to proceed. She tolerated the right hip greater trochanteric bursa cortisone injection well. She will continue with her home exercise program. She will contact me prior to her follow-up appointment in 3 months should any questions or concerns arise. Feel free to call me at any time should questions regarding her orthopedic management arise. I spent 21 minutes in reviewing the patient's records and imaging studies, seeing the patient and documenting in the medical record. Orders: Orders AMB Joint Injection/Aspiration Today M70.61 - Trochanteric bursitis, right hip Coding Level of Care Code Est Pt Level 3 (17198) Complex EM visit Add On G2211 Diagnoses Trochanteric bursitis, right hip M70.61 CPT Codes Coding - 92744 Large joint: 99302 - Large joint ([id number])
[2025-04-17 08:36] VITALS: BMI 28.3
== END 2025-04-17 09:01 | disposition home or self-care (01) ==
LOC: HO.HOS 08:17
PROVIDERS: PCP Internal Medicine; Visit Provider Orthopaedic Surgery
DX: M70.61 Trochanteric bursitis, right hip (principal)
CPT/HCPCS: 20610; 99213

== ENCOUNTER → 2025-04-17 08:17 | Outpatient (BNVA) | payer MEDICARE, BC, SELFPAY | PROVIDERS: PCP Internal Medicine; Visit Provider Orthopaedic Surgery | DX: M70.61 Trochanteric bursitis, right hip (principal) | CPT/HCPCS: 20610; 99212; J1010; J2003 ==

== ENCOUNTER 2025-07-23 08:47 | Outpatient (AMB) | payer MEDICARE, BC, SELFPAY ==
--- NOTE | 2025-07-23 08:49 | A.OFFVIS_ITS ---
Intake Visit Reasons: Inj-Right hip cortisone-last 04/17/25 Intake Note: Jane is a 74 year old female who presents today for her right hip. She received a right hip greater trochanteric bursa on 04/17/2025 and would like to repeat today. She continues with her home exercise program. She does walk with a walker. Allergies Penicillins Allergy (Intermediate, Verified 04/17/25 08:36) Rash Medication List - Last Reconciled 07/23/25 by Gregory Martinez MD acetaminophen (Tylenol Extra Strength) 500 mg PO Q6H PRN atorvastatin 40 mg PO BEDTIME celecoxib (Celebrex) 200 mg PO DAILY PRN cholecalciferol (vitamin D3) 25 mcg PO QAM clindamycin HCl 300 mg PO ONCE clindamycin HCl 600 mg (2 x 300 mg) PO ONCE metoprolol succinate ER 100 mg PO BEDTIME omega-3 fatty acids (Fish Oil Concentrate) 1,000 mg PO QAM walker Folding front wheeled walker [facility] Medical History (Updated 01/29/25 @ 15:38 by Haily Diez PA-C) Osteopenia Personal history of nicotine dependence Arthritis of left hip (09/12/23) Arthritis Sinus tachycardia Spinal stenosis Claudication Elevated LFTs Knee pain, left Mammogram normal HTN (hypertension) Osteoarthritis of knees, bilateral Hyperlipidemia Surgical History (Updated 09/20/24 @ 15:39 by Haily Diez PA-C) History of lumbar discectomy History of cervical discectomy History of right knee surgery History of colonoscopy History of appendectomy History of left hip replacement Family History Mother Diabetes Fibromyalgia Father Abnormal cardiovascular function Brother Substance use disorder Social History (Updated 10/19/24 @ 09:53 by Haily Diez PA-C) Household Members: Other Household Members Other:: son Housing: House Are you a primary wound care nurse to a significant other at home: No Do you presently have visiting nurse or other home services: No Alcohol intake: current Alcohol intake frequency: a few times a week Patient Tobacco Use Status: Former Tobacco user Tobacco use type: Cigarette Years Smoked: (onset 16yo, 1ppd x 53yrs, 50pyh, quit 08/22/2019) e-Cigarette/Vaping Use: Former Use Current occupational status: retired Cognitive needs: No Hearing needs: No Vision needs: Yes Physical Exam Extrem Other: Right hip examination shows mild to moderate discomfort with range of motion, tenderness over her bursa, no overlying skin lesions Office Procedures AMB Joint Injection/Aspiration Joint Injection/Aspiration Primary Site: Right Trochanteric Bursa Prep: site was prepped using aseptic technique Injected: 40 mg of, DepoMedrol, with 3 mL of and 1% plain Lidocaine Procedure: The patient tolerated the procedure well Coding 74494 - Large joint Procedure code (CPT) selection complete Assessment & Plan Assessment & Plan (1) Trochanteric bursitis, right hip: Code(s): M70.61 - Trochanteric bursitis, right hip Category: Medical Plan Ms. Shrestha presents with right hip pain due to degenerative joint disease as well as greater trochanteric bursitis. The risks and benefits of a right hip greater trochanteric bursa cortisone injection were discussed at length with the patient. The patient wished to proceed. She tolerated the injection well. She will continue with her activity modifications. She will contact me prior to her follow-up appointment in 3 months should any questions or concerns arise. Feel free to call me at any time should questions regarding her orthopedic management arise. I spent 21 minutes in reviewing the patient's records and imaging studies, seeing the patient and documenting in the medical record. Orders: Orders AMB Joint Injection/Aspiration Today M70.61 - Trochanteric bursitis, right hip Coding Level of Care Code Est Pt Level 3 (72108) Complex visit Add On G2211 Diagnoses Trochanteric bursitis, right hip M70.61 CPT Codes Coding - Large joint: 55619 - Large joint ([id number])
== END 2025-07-23 09:32 | disposition home or self-care (01) ==
LOC: HO.HOS 08:48
PROVIDERS: PCP Internal Medicine; Visit Provider Orthopaedic Surgery
DX: M70.61 Trochanteric bursitis, right hip (principal); M25.551 Pain in right hip
CPT/HCPCS: 20610; 99213

== ENCOUNTER → 2025-07-23 08:47 | Outpatient (BNVA) | payer MEDICARE, BC, SELFPAY | PROVIDERS: PCP Internal Medicine; Visit Provider Orthopaedic Surgery | DX: M70.61 Trochanteric bursitis, right hip (principal) | CPT/HCPCS: 20610; 99212; J1010; J2003 ==

== ENCOUNTER 2025-08-08 09:38 | Outpatient (REF) | payer MEDICARE, BC, SELFPAY ==
[2025-08-08 14:12] LABS: MANUAL DIFF FLAG NO
[2025-08-08 14:22] LABS: Appearance Urine Cloudy; Glucose Urine UA Negative (Negative); PH 5.0 (5.0-9.0); Specific Gravity - Urine 1.020 (1.005-1.025); UMIC TRIGGER UA YES
[2025-08-08 14:26] LABS: Hematocrit 47.2 % (37.0-47.0); Hemoglobin 15.7 g/dl (12.0-16.0); Imm Gran Abs Auto 0.02 X10*3/uL (0.00-0.03); Imm Gran Pct Auto 0.3 % (0.0-0.4); Lymphocytes Absolute Auto 2.3 X10*3/uL (1.2-4.9); Mean Corpuscular HGB Conc 33.3 g/dl (31.0-35.0); Mean Corpuscular Hemoglobin 30.5 pg (27.0-33.0); Mean Corpuscular Volume 91.8 fL (80.0-98.0); NRBC Abs Auto 0.000 X10*3/uL (0.0-0.012); NRBC Pct Auto 0.0 /100WBC (0.0-0.2); Platelet Count 224 X10*3/uL (160-400); Red Blood Count 5.14 X10*6/uL (4.20-5.50); White Blood Count 6.9 X10*3/uL (4.8-10.8)
[2025-08-08 15:32] LABS: Alanine Aminotransferase 48 U/L (0-31); Albumin Level 5.0 g/dL (3.5-5.0); Alkaline Phosphatase 111 U/L (39-117); Anion Gap 14 (12-20); Aspartate Amino Transferase 37 U/L (5-31); Blood Urea Nitrogen 18 mg/dL (9-16); Calcium 10.0 mg/dL (8.4-10.2); Carbon Dioxide 27 mmol/L (22-29); Chloride 103 mmol/L (96-108); Cholesterol 150 mg/dL (<200); Estimated Glomerular Filt Rate > 60; HDL Cholesterol 45 mg/dL (>40); Potassium 4.5 mmol/L (3.3-5.1); Sodium 139 mmol/L (135-145); Total Protein 7.8 g/dL (6.5-8.0); Triglycerides 127 mg/dL (<150)
[2025-08-08 17:05] LABS: Microalbum/Creatinine Ratio Ur 12.1 ug/mg cr (<30)
== END 2025-08-08 09:39 | disposition home or self-care (01) ==
LOC: HO.HMGCLDS 09:38
PROVIDERS: PCP Internal Medicine; Visit Provider Internal Medicine
DX: I73.9 Peripheral vascular disease, unspecified (principal); R91.1 Solitary pulmonary nodule; I11.9 Hypertensive heart disease without heart failure; I25.10 Atherosclerotic heart disease of native coronary artery without angina pectoris; Z78.0 Asymptomatic menopausal state; E78.5 Hyperlipidemia, unspecified; M16.11 Unilateral primary osteoarthritis, right hip; Z13.89 Encounter for screening for other disorder; Z87.891 Personal history of nicotine dependence
CPT/HCPCS: 36415; 80053; 80061; 81001; 82043; 82570; 84443; 85025

== ENCOUNTER 2025-08-08 09:38 | Outpatient (AMB) | payer MEDICARE, BC, SELFPAY ==
--- NOTE | 2025-08-08 09:44 | A.OFFVIS_ITS ---
Intake Vital Signs 08/08/25 09:49 Height 5 ft 5 in Weight 172 lb BMI 28.6 BP 122/66 Blood Pressure Location Rt brachial Position Sitting Respiration 17 Pulse 60 Pulse Source Pulse Oximeter Temp 97.3 F Temp Source Oral Pulse Oximetry (%) 95 Oxygen Delivery Method Room Air Intake Visit Reasons: SWV G0439 Intake Note: Pt is here today for AWV. Allergies Penicillins Allergy (Intermediate, Verified 08/08/25 09:51) Rash Medication List - Last Reconciled 08/08/25 by Qing Aguilar MD acetaminophen (Tylenol Extra Strength) 500 mg PO Q6H PRN atorvastatin 40 mg PO BEDTIME celecoxib (Celebrex) 200 mg PO DAILY PRN cholecalciferol (vitamin D3) 25 mcg PO QAM clindamycin HCl 600 mg (2 x 300 mg) PO ONCE metoprolol succinate ER 100 mg PO BEDTIME omega-3 fatty acids (Fish Oil Concentrate) 1,000 mg PO QAM walker Folding front wheeled walker HPI SWV G0439 HPI Details Initiated the conversation about Advanced Directives. Advanced Directives help? patients prepare for current and future decisions about their medical treatment? and place of care. Discussed with patient that it is a process where a patients? current condition and prognosis are reviewed, their wishes for information? regarding their illness are elicited, and likely medical dilemmas are presented? and options discussed. The form can be amended as needed, reviewed yearly and? make changes as needed IPPE/AWV ? year old presents? for her ? Annual? Wellness Visit, initial visit.? Medical / Social History Reviewed? Past Medical History ?Yes? . ? [place]? of Care / Care Team list updated ?Yes . ? Surgical/Hospitalization? History ?Yes . ? Current Medications? (including OTC and supplements) ?Yes . ? Family History ?Yes? . ? Tobacco? Control form ?Yes . ? AUDIT-C (Alcohol use) form? ?Yes . ? Illicit drug use in Social? History ?Yes . ? Current diagnosis of? depression? ?No ? Appropriate PHQ2/PHQ9? completed ?Yes . ? Data entered by ?Medical? Brim Presser and reviewed by provider ? Fall Risk ? Fall? History? Have you had any falls with? injury in the past year? ?No . ? Have you had two or more? falls in the past year? ?No . ? Fall Risk Assessment: ?No? falls in the past year . ? HRA filled out by? the patient, reviewed by Provider and scanned. ? IPPE/AWV ? Balance? [place]? ?Yes . ? Tandem? walk ?Yes . ? Walk and? Turn ?Yes . ? Rise from? sit to stand ?Yes . ?Vision? Corrective? lens ?Yes ? Vision? screen ? Up-to-date, has an appointment [] for vision? screening and glaucoma screening ?Hearing? Whisper? test ?pass .? Initiated the conversation about Advanced Directives. Advanced Directives help? patients prepare for current and future decisions about their medical treatment? and place of care. Discussed with patient that it is a process where a patients? current condition and prognosis are reviewed, their wishes for information? regarding their illness are elicited, and likely medical dilemmas are presented? and options discussed. The form can be amended as needed, reviewed yearly and? make changes as needed Written? Plan?Completed. See Patient? Documents. [facility] Medical History (Updated 08/08/25 @ 15:26 by Qing Aguilar MD) Coronary artery calcification seen on CAT scan Postmenopausal Hyperlipidemia Osteopenia Personal history of nicotine dependence Arthritis of left hip (09/12/23) Arthritis Sinus tachycardia Spinal stenosis Claudication Elevated LFTs Knee pain, left Mammogram normal HTN (hypertension) Osteoarthritis of knees, bilateral Surgical History (Updated 09/20/24 @ 15:39 by Haily Diez PA-C) History of lumbar discectomy History of cervical discectomy History of right knee surgery History of colonoscopy History of appendectomy History of left hip replacement Family History Mother Diabetes Fibromyalgia Father Abnormal cardiovascular function Brother Substance use disorder Social History (Updated 10/19/24 @ 09:53 by Haily Diez PA-C) Household Members: Other Household Members Other:: son Housing: House Are you a primary ambulatory care nurse to a significant other at home: No Do you presently have visiting nurse or other home services: No Alcohol intake: current Alcohol intake frequency: a few times a week Patient Tobacco Use Status: Former Tobacco user Tobacco use type: Cigarette Years Smoked: (onset 16yo, 1ppd x 53yrs, 50pyh, quit 08/22/2019) e-Cigarette/Vaping Use: Former Use Current occupational status: retired Cognitive needs: No Hearing needs: No Vision needs: Yes Questionnaire Medicare Wellness Checkup [age] What gender do you identify with?: female During the past 4 weeks, how much have you been bothered by emotional problems such as feeling anxious, depressed, irritable, sad or downhearted, and blue?: slightly During the past 4 weeks, has your physical & emotional health limited your social activities with family, friends, neighbors, or groups?: not at all During the past 4 weeks, how much bodily pain have you generally had?: moderate pain During the past 4 weeks, was someone available to help you if you needed & wanted help?: yes, as much as I wanted During the past 4 weeks, what was the hardest physical activity you could do for at least 2 minutes?: very light Can you get to places out of walking distance without help? (For eg., can you travel alone on buses, taxis or drive your car?): Yes Can you go shopping for groceries or clothes without someone's help?: Yes Can you prepare your own meals?: Yes Can you do your housework without help?: No Because of any health problems, do you need the help of another person with your personal care needs such as eating, bathing, dressing or getting around the house?: Yes Can you handle your own money without help?: Yes During the past 4 weeks, how would you rate your health in general?: good During the past 4 weeks how have things been going for you?: good & bad parts about equal Are you having difficulties driving your car?: no Do you always fasten your seat belt when you are in a car?: yes, usually During past 4 weeks, have you been bothered by the following: never: Falling or dizzy when standing up, Sexual problems?, Trouble eating well?, Teeth or denture problems? and Problems using the telephone? and sometimes: Tiredness or fatigue? Have you fallen 2 or more times in the past year?: No Are you afraid of falling?: Yes Are you a smoker?: no During the past 4 weeks, how many drinks of wine, beer, or other alcoholic beverages did you have?: 1 drink or less per week Do you exercise for about 20 minutes 3 or more times a week?: no, I usually do not exercise this much Have you been given information to help with the following?: no: Hazards in your house that might hurt you? and no: Keeping track of your medications? How often do you have trouble taking medicines the way you have been told to take them?: I always take medicine as prescribed How confident are you that you can control & manage most of your health problems?: somewhat confident What is your race?: White Mini Mental State Exam (MMSE) Orientation What is the (year) (season) (date) (day) (month)?: year, season, date, day and month Where are we (state) ([facility]) (town or city) (hospital) (floor)?: state, county, town or city, hospital/clinic and floor Registration Name of 3 unrelated objects clearly and slowly, then ask patient to repeat all 3 of them. (1st repeat determines score. Make sure they can repeat all three): object 1, object 2 and object 3 Attention & Calculation (CHOOSE ONE) Spell WORLD backwards (DLROW): 5 letters Recall Ask patient to repeat the 3 items from question #3.: object 1, object 2 and object 3 Language Show patient a wristwatch & ask what it is. Repeat for pencil.: watch and pencil Ask the patient to repeat the phrase 'No ifs, ands, or buts' after you.: correct Ask the patient to 'take a piece of paper with their right hand' 'fold paper in half' 'place paper on floor': take paper in right hand, fold paper in half and place paper on floor Print the sentence 'CLOSE YOUR EYES' on a piece. If patient actually closes eyes then score.: followed written direction Give patient a blank piece of paper & ask to write a sentence. Score if it contains a noun & verb.: sentence contains subject and verb Score Score: 29 PHQ-9 Over the last 2 weeks, how often have you been bothered by any of the following problems? 1. Little interest or pleasure in doing things: not at all 2. Feeling down, depressed, or hopeless: several days 3. Trouble falling or staying asleep, or sleeping too much: nearly every day 4. Feeling tired or having little energy: nearly every day 5. Poor appetite or overeating: nearly every day 6. Feeling bad about yourself - or that you are a failure or have let yourself or your family down: not at all 7. Trouble concentrating on things, such as reading the newspaper or watching television: not at all 8. Moving or speaking so slowly that other people could have noticed. Or the opposite - being so fidgety or restless that you have been moving around a lot more than usual: not at all 9. Thoughts that you would be better off or of hurting yourself in some way: not at all Total score: 10 Depression Screening Interpretation: Positive Depression Screening Done: Yes 58104 - PHQ-9 Billing: Yes Source: Developed by Drs. Simon Abel, Thelma Gould, Rajat Todd and colleagues, with an educational juliano from [employer]. Review of Systems Const All systems reviewed & are unremarkable except as noted in HPI and below Eyes Reports no additional complaints ENT Reports no additional complaints Card Reports no additional complaints Resp Reports no additional complaints GI Reports no additional complaints Reports no additional complaints Physical Exam Vital Signs: Last Vital Signs Temp 97.3 F 08/08/25 09:49 Pulse 60 08/08/25 09:49 Resp 17 08/08/25 09:49 BP 122/66 08/08/25 09:49 Pulse Ox 95 08/08/25 09:49 Oxygen Delivery Method Room Air 08/08/25 09:49 BMI result Body Mass Index 28.6 Const General: no acute distress HEENT Head: Yes normal to inspection Ears: TM's normal bilaterally Eyes General: appearance normal, both eyes and all related structures Neck Neck: Yes no lymphadenopathy and Yes supple Resp Effort & Inspection: normal respiratory effort Auscultation: clear to auscultation bilaterally Cardio Rhythm: regular rhythm Heart sounds: S1 normal heart sound present and S2 normal heart sound present GI Inspection: Yes normal to inspection Palpation (GI): Soft to palpation Percussion: Yes normal to percussion Auscultation: normal bowel sounds Extrem General: Yes no clubbing, cyanosis or edema Results AMB Hemoglobin A1c AMB Hemoglobin A1c 6.0 % Last Edit by NEENA Baer on 08/08/25 10:1 7 Results Reviewed Results Reviewed: Laboratory Last Values Hgb A1c (Clinic) 6.0 % (4.0-6.0) 08/08/25 10:06 Assessment & Plan Assessment & Plan (1) Claudication: Comment: Arterial doppler 03/2021, RLE mild PVD, LLE normal Code(s): I73.9 - Peripheral vascular disease, unspecified Plan: Follow-up with the vascular surgeon (2) Pulmonary nodule: Comment: 10/19/24 LDCT = 6 mm part solid part ground-glass DENISE nodule - plan 3m repeat LDCT) Code(s): R91.1 - Solitary pulmonary nodule Plan: Follow-up with lung cancer screening program (3) Coronary artery calcification seen on CAT scan: Comment: (Severe Coronary Calcification seen on 01/29/25 LDCT, no angina symptoms, on high dose statin Code(s): I25.10 - Atherosclerotic heart disease of [place] coronary artery without angina pectoris Plan: On high dose statin (4) Postmenopausal: Code(s): Z78.0 - Asymptomatic menopausal state Plan: Check DEXA (5) Arthritis of right hip: Comment: X-ray of right hip moderate to severe osteoarthritis Code(s): M16.11 - Unilateral primary osteoarthritis, right hip Plan: Follow-up with ortho. Refer patient to physical therapy. She was advised to stop atorvastatin for 1 month to rule out statin induced myalgia and arthralgia Orders: Orders AMB Hemoglobin A1c Today Z13.9 - Encounter for screening, unspecified Comprehensive [place]. Panel Fast Today E78.5 - Hyperlipidemia, unspecified, I25.10 - Atherosclerotic heart disease of [place] coronary artery without angina pectoris, I73.9 - Peripheral vascular disease, unspecified, R91.1 - Solitary pulmonary nodule Complete Blood Count Auto Diff Today E78.5 - Hyperlipidemia, unspecified, I25.10 - Atherosclerotic heart disease of [place] coronary artery without angina pectoris, I73.9 - Peripheral vascular disease, unspecified, R91.1 - Solitary pulmonary nodule UA w Microscopic Today E78.5 - Hyperlipidemia, unspecified, I25.10 - Atherosclerotic heart disease of [place] coronary artery without angina pectoris, I73.9 - Peripheral vascular disease, unspecified, R91.1 - Solitary pulmonary nodule Microalbumin, Random (w Creat) Today E78.5 - Hyperlipidemia, unspecified, I25.10 - Atherosclerotic heart disease of [place] coronary artery without angina pectoris, I73.9 - Peripheral vascular disease, unspecified, R91.1 - Solitary pulmonary nodule Lipid Panel Today E78.5 - Hyperlipidemia, unspecified, I25.10 - Atherosclerotic heart disease of [place] coronary artery without angina pectoris, I73.9 - Peripheral vascular disease, unspecified, R91.1 - Solitary pulmonary nodule TSH reflex Free T4 Today E78.5 - Hyperlipidemia, unspecified, I25.10 - Atherosclerotic heart disease of [place] coronary artery without angina pectoris, I73.9 - Peripheral vascular disease, unspecified, R91.1 - Solitary pulmonary nodule XR DEXA appendicular skeleton Today Z78.0 - Asymptomatic menopausal state PT Evaluation and Treatment Today M16.11 - Unilateral primary osteoarthritis, right hip, M70.61 - Trochanteric bursitis, right hip Quality Reporting (2019) Depression/Bipolar (159/160/161/177) PHQ-9: Total score: 10 Coding Level of Care Code Medicare Subsequent (G0439) Diagnoses Claudication I73.9 Pulmonary nodule R91.1 Coronary artery calcification seen on CAT scan I25.10 Postmenopausal Z78.0 Arthritis of right hip M16.11 CPT Codes Advance Care Planning - Advance Care Planning discussion: On file, no changes ([id number]) Advance Care Planning - Time spent: 1-15 minutes, on File ([id number]) Additional Codes PHQ-9 - 45613 - PHQ-9 Billing: Yes ([id number]) Advance Care Planning Advance Care Planning discussion: On file, no changes Forms completed: Health Care Proxy Time spent: 1-15 minutes, on File
[2025-08-08 09:49] VITALS: BP 122/66; PULSE 60; RESP 17; TEMP 36.3; O2SAT 95; BMI 28.6
== END 2025-08-08 12:02 | disposition home or self-care (01) ==
LOC: HO.HMCC 09:38
PROVIDERS: PCP Internal Medicine; Visit Provider Internal Medicine
DX: Z00.00 Encounter for general adult medical examination without abnormal findings (principal); I73.9 Peripheral vascular disease, unspecified; R91.1 Solitary pulmonary nodule; I25.10 Atherosclerotic heart disease of native coronary artery without angina pectoris; Z78.0 Asymptomatic menopausal state; M16.11 Unilateral primary osteoarthritis, right hip; Z13.9 Encounter for screening, unspecified

== ENCOUNTER 2025-08-20 12:40 | Outpatient (REF) | payer MEDICARE, BC, SELFPAY ==
[2025-08-20 16:20] LABS: Appearance Urine Cloudy; Glucose Urine UA Negative (Negative); PH 5.5 (5.0-9.0); Specific Gravity - Urine 1.020 (1.005-1.025); UMIC TRIGGER UA YES
== END 2025-08-20 12:41 | disposition home or self-care (01) ==
LOC: HO.HMGCLDS 12:40
PROVIDERS: PCP Internal Medicine; Visit Provider Internal Medicine
DX: R82.71 Bacteriuria (principal)
CPT/HCPCS: 81001; 87086; 87088; 87186